=== PATIENT | male | born 1950 | race Caucasian/White ===

== ENCOUNTER 2016-12-09 13:21 | Inpatient (IN) | payer MEDICARE ==
[2016-12-09] MEDS ORDERED: Morphine 2 MG/ML SYRINGE ONE ×2 (14:10→17:24)
[2016-12-09] MEDS ORDERED: Ondansetron HCl/PF 4 MG/2 ML Vial ONE ×2 (14:10→17:24)
[2016-12-09 14:36] LABS: #Lymphocytes 0.2 thou/uL (1.20-3.40); #Monocytes 0.2 thou/uL (0.11-0.59); #Neutrophils 4.7 thou/uL (1.40-6.50); %Basophils 0.2 % (0.0-1.0); %Eosinophils 0.2 % (0.0-10.0); Hematocrit 27.1 % (42.0-52.0); Mean Platelet Volume 6.1 fL (7.4-10.4); Red Blood Cell (RBC) Count 3.38 mill/uL (4.70-6.10); White Blood Cell (WBC) Count 5.1 thou/uL (4.8-10.8)
[2016-12-09 14:50] LABS: Anisocytosis SLIGHT = 6-15 cells (100X) (0-5/hpf); Hypochromia SLIGHT = 6-15 cells (100X) (0-5/hpf); Ovalocytes SLIGHT = 2-5 cells (100X) (0-1/hpf); Polychromasia SLIGHT = 2-3 cells (100X) (0-2/hpf); Schistocytes SLIGHT = 2-5 cells (100X) (0-1/hpf); Target Cells SLIGHT = 2-5 cells (100X) (0-1/hpf); Tear Drops SLIGHT = 2-5 cells (100X) (0-1/hpf)
[2016-12-09 14:55] LABS: ALT (SGPT) 14 U/L (8-55); AST (SGOT) 19 U/L (5-34); Alkaline Phosphatase 120 U/L (40-150); Anion Gap 13 mmol/L (10-20); BUN (Urea Nitrogen) 13 mg/dL (8.4-25.7); Bilirubin, Total 0.9 mg/dL (0.2-1.2); Calc. Creatinine Clearance 0 mL/min (70-130); Calcium 9.6 mg/dL (7.8-10.44); Carbon Dioxide 24 mmol/L (23-31); Chloride 102 mmol/L (98-107); Estimated GFR-MDRD Greater than 90; Lipase 6 U/L (8-78); Protein, Total 6.9 g/dL (5.8-8.1)
[2016-12-09] MEDS ORDERED: Iopamidol 370 76% 100 ML VIAL ONE (14:55)
[2016-12-09 14:59] LABS: Troponin I Less than 0.010 ng/mL (< 0.028)
--- NOTE | 2016-12-09 15:42 | CT ---
CT ABDOMEN AND PELVIS WITH CONTRAST: HISTORY: Small bowel obstruction. Abdominal pain. Nausea and vomiting. COMPARISON: CT abdomen and pelvis 10/03/15. FINDINGS: Lung bases are clear. No pericardial effusion. There is small bowel obstruction to the level of the distal ileum within the right lower quadrant wh ich appears to be a stricture. This is seen on series 601 image 70. There is moderate proximal sma ll bowel dilatation. The small bowel measures up to 4 cm. The large bowel is collapsed. There is new free fluid within the abdomen and pelvis, especially along the perihepatic space. Prio r cholecystectomy. The spleen is mildly enlarged. Pancreas is unremarkable. The kidneys are normal. Aortoiliac contour is normal. Posterior spinal fusion is present at L3-L5. IMPRESSION: 1. Small bowel obstruction to the level of the right lower quadrant of the abdomen and distal ileum best seen on series 601 image 67-70. This appears to be due to a stricture. Fairly extensive subm ucosal edema throughout the remaining collapsed ileum. Transudation of fluid across the bowel wall is suspected with possible breakdown of integrity due to the moderate inflammatory edema as well as perihepatic ascites. Surgical consultation is advised. 2. Small volume gastric varices and esophageal varices. 3. Mild splenomegaly. 4. Extensive submucosal edema and fat of the distal ileum to suggest chronic inflammatory bowel dis ease such as Crohn's. 5. Atrophy of the quadriceps musculature of the right side. POS: [facility]
[2016-12-09 17:26] LABS: Bilirubin Negative (Negative); Blood, Urine Negative (Negative); Glucose, Urine (Dipstick) Negative (Negative); Ketone, Urine 40 mg/dL (Negative); Nitrite Negative (Negative); Protein, Urine (Dipstick) Negative (Neg-Trace)
[2016-12-09] MEDS ORDERED: Ondansetron ODT 4 MG TAB SL PRN (18:00)
[2016-12-09] MEDS ORDERED: Ondansetron HCl/PF 4 MG/2 ML Vial IVP PRN ×2 (18:00→18:12)
[2016-12-09] MEDS ORDERED: Sodium Chloride 0.9% 1,000 ML IV SCH (18:00)
[2016-12-09] MEDS ORDERED: Morphine 2 MG/ML SYRINGE SLOW IVP PRN (18:12)
[2016-12-09] MEDS ORDERED: Dextrose 5% in Water 1,000 ML IV PRN (18:12)
[2016-12-09] MEDS ORDERED: HumaLOG 300 UNITS/3 ML VIAL SC PRN (18:12)
[2016-12-09] MEDS ORDERED: Dextrose 50% Abboject 50 ML SYRINGE SLOW IVP PRN (18:12)
[2016-12-09] MEDS ORDERED: Insulin Regular 300 UNITS/3 ML VIAL SC PRN ×2 (18:12)
[2016-12-09 18:30] LABS: #Lymphocytes 0.4 thou/uL (1.20-3.40); #Monocytes 0.2 thou/uL (0.11-0.59); #Neutrophils 4.5 thou/uL (1.40-6.50); %Eosinophils 0.1 % (0.0-10.0); %Lymphocytes 7.4 % (21.0-51.0); %Monocytes 3.7 % (0.0-10.0); Hematocrit 26.8 % (42.0-52.0); Mean Platelet Volume 7.5 fL (7.4-10.4); Red Blood Cell (RBC) Count 3.34 mill/uL (4.70-6.10); White Blood Cell (WBC) Count 5.1 thou/uL (4.8-10.8)
[2016-12-09 18:42] LABS: Anisocytosis SLIGHT = 6-15 cells (100X) (0-5/hpf); Hypochromia SLIGHT = 6-15 cells (100X) (0-5/hpf); Ovalocytes SLIGHT = 2-5 cells (100X) (0-1/hpf); Polychromasia SLIGHT = 2-3 cells (100X) (0-2/hpf)
[2016-12-09 18:43] LABS: Schistocytes SLIGHT = 2-5 cells (100X) (0-1/hpf); Target Cells SLIGHT = 2-5 cells (100X) (0-1/hpf)
[2016-12-09] MEDS: Sodium Chloride 0.9% 1,000 ML IV SCH (19:21)
[2016-12-09] MEDS ORDERED: Labetalol HCl 100 MG/20 ML VIAL SLOW IVP PRN (19:41)
--- NOTE | 2016-12-09 19:44 | HP ---
HISTORY OF PRESENT ILLNESS: Mr. Swan is a 66-year-old old man for the last 3 days he has been experimenting from increasing abdominal pain and vomiting. He came into the ER, he was daniela javed, he was found to have small-bowel obstruction. General Surgery was consulted and he suggested t hat GI will be on board and the patient be admitted to Medicine. He denies any diarrhea. Actually, his last bowel movement was about 2 days ago. He denies any fever. PAST MEDICAL HISTORY: Remarkable for coronary artery disease. He is also known to have history of diabetes. He denies hypertension, heart disease, lung disease, liver disease. He does also have a history of polio as a toddler. PAST SURGICAL HISTORY: Remarkable for cholecystectomy, right ankle surgery, C-spine surgery and low er back laminectomy. ALLERGIES: He does not have any known allergies. SOCIAL HISTORY: He quit smoking many years ago. He denies ETOH abuse. He denies drug abuse. FAMILY HISTORY: Reviewed and is not contributory. HOME MEDICATIONS: To be identified. He claims that he was on Humira. REVIEW OF SYSTEMS: Constitutional: He admits to generalized weakness. Denies fever. HEENT: No h eadache, no ocular pain, no sore throat, no rhinorrhea, no earache, no epistaxis. Neck: No neck pa in, no neck stiffness. Respiratory: No shortness of breath. Cardiovascular: No chest pain. Pulm onary: No coughing. Gastrointestinal: Admit to vomiting, abdominal pain, constipation. Genitouri nary: No dysuria, no hematuria. Endocrinology: No heat or cold intolerance. No polyuria, polydip tano or polyphagia. Musculoskeletal: No arthralgia, no myalgia. Skin: No rash, no itching. Lymph atic: No palpable lymphadenopathy, no painful lymphadenopathy. Hematology: No abnormal bleeding, no ecchymosis. Allergies: No hayfever. Neurologic: No seizure. Psychiatric: No anxiety, no dep ression. PHYSICAL EXAMINATION: GENERAL: At the current time, he is alert, oriented, in no acute distress. VITAL SIGNS: His latest vital signs show temperature of 97.8, pulse rate 105, respiratory rate of 1 6, blood pressure 158/78. HEENT: His head is normocephalic and atraumatic. Both of his pupils are equal, reacting. Ears and nose are normal. Oral mucosa is moist. Pharyngeal area is clear. NECK: Supple. There is no distention of the jugular vein. No lymphadenopathy felt. Thyroid gland not palpable and there is no carotid bruit. CHEST: Symmetrical with regular S1, S2. LUNGS: Clear. ABDOMEN: Soft. Bowel sounds are decreased. We could not appreciate any organomegaly. EXTREMITIES : Limbs show no edema. NEUROLOGIC: He moves all extremities. LABORATORY DATA AND IMAGING: His CBC showed WBC of 5.1, hemoglobin of 8.2, hematocrit of 27.1, MCV of 80.1, platelet of 45. Chemistry and electrolytes show sodium of 135, potassium of 4, chloride 10 2, CO2 24, BUN 13, creatinine 0.64, glucose 157, calcium 9.6, total bilirubin 0.9, AST 9, ALT 14, al kaline phosphatase 120. Troponin negative. Albumin 3.9, globulin 3.0. Lipase 6. Abdomen and pelv is CT was reported to show small-bowel obstruction. ASSESSMENT AND PLAN: This is a 66-year-old old man with a history of diabetes mellitus an d coronary artery disease, who is being admitted with small-bowel obstruction. General Surgery and gastroenterology are consulted. The patient was noticed to have a low platelet count and also with anemia. We will consult hematology. The patient may need platelet transfusion prior to surgery. B y the meantime, he will be hydrated with normal saline. His home medications are yet to be identifi ed. Please see orders.
--- NOTE | 2016-12-09 23:13 | CON ---
DATE OF CONSULTATION: 12/09/2016 CHIEF COMPLAINT: Abdominal pain. HISTORY: Mr. Swan is a 66-year-old man with a 10-15 years history of Crohn disease. He has been admitted multiple times in the past for abdominal pain, nausea and vomiting related to a Crohn stricture in the terminal ileum. He has a 3-4 day history of increasing right lower quadrant pain, which he thought was just a Crohn's flare, but then the pain got much worse and he started to throw up, so he came into the emergency room. He was found to have findings consistent with small-bowel obstruction likely related to a stricture in the terminal ileum with decompressed terminal ileum and colon and a small amount of free fluid in the abdomen. An NG tube was placed and the patient was admitted to the medicine service with GI consultation. The patient states that he has been getting Humira as prescribed and had been doing well until just recently. PAST MEDICAL HISTORY: Includes Crohn disease, coronary artery disease, diabetes , hypertension and myelodysplasia. PAST SURGICAL HISTORY: Cholecystectomy, right ankle surgery and back surgeries , but no bowel surgery for his Crohn's. SOCIAL HISTORY: Quit smoking many years ago and does not use drugs or alcohol. FAMILY HISTORY: Negative for inflammatory bowel disease or GI malignancy. ALLERGIES: He has no known drug allergies. OUTPATIENT MEDICATIONS: Include Humira, Xanax, glimepiride, [place], nortriptyline, amlodipine, azathioprine and prednisone. REVIEW OF SYSTEMS: Ten-system review of systems is negative except per HPI. He specifically denies nausea or vomiting. His last bowel movement was 2 days ago, but he passed a little gas just earlier today in the hospital. He states that his abdominal pain is colicky in nature, but does not go completely away. PHYSICAL EXAMINATION: VITAL SIGNS: Unremarkable. He is afebrile, heart rate 96, respirations 16, blood pressure 164/74 and 100% saturated on room air. GENERAL: Reveals a pleasant gentleman in no acute distress, with colicky episodes of abdominal pain occurring intermittently during the interview and during which he is in moderate distress. He is not flushed or toxic, jaundiced or icteric. HEENT: Unremarkable. NG tube is in place. There has been about 200 mL of bilious drainage. The nurse states that when he first came up to the armando there was nothing coming out of the NG tube, but he had an episode of nausea and vomiting and the NG tube drained about 200 mL at that time and then stopped draining again. HEART: Regular in its rate and rhythm without murmurs, rubs or gallops. LUNGS: Clear to auscultation bilaterally. ABDOMEN: Soft and mildly distended with hyperactive bowel sounds and diffuse mild tenderness to palpation without rigidity, rebound, guarding or focal findings. He has no palpable masses or hernias. EXTREMITIES: Warm and well perfused without edema. NEUROLOGIC: No focal deficits. PSYCHIATRIC: Alert, oriented and appropriate. LABORATORY AND X-RAY FINDINGS: White count is normal at 5.1, hematocrit 26.8 and platelet count 38. Electrolytes and LFTs are unremarkable. UA showed some ketones and a higher than normal specific gravity, but otherwise clear. CT images are reviewed and I agree with the written report. ASSESSMENT AND PLAN: Recurrent small bowel obstruction due to Crohn stricture. This episode appears to be symptomatically and radiographically worse than previous episodes and he is still quite uncomfortable even after placement of the NG tube and administration of pain medication. If he does not improve rapidly then surgery may be necessary. Hopefully, he will improve with bowel rest and medical management of his Crohn's; however, given the more severe nature of this obstruction, surgery may be necessary during this admission. PENELOPE
--- NOTE | 2016-12-09 23:17 | RAD ---
KUB: History: Abdominal pain. Comparison: CT, earlier today. FINDINGS: There is air within both small and large bowel with dilated small bowel loops. NG tube is present wi thin the stomach. Post op changes of the lumbar spine and gallbladder region are noted. IMPRESSION: Findings consistent with small bowel obstruction. POS: [facility]
[2016-12-09] MEDS: Morphine 2 MG/ML SYRINGE SLOW IVP PRN (23:36)
[2016-12-10] MEDS: Morphine 2 MG/ML SYRINGE SLOW IVP PRN (01:43)
[2016-12-10 05:58] LABS: #Lymphocytes 0.3 thou/uL (1.20-3.40); #Monocytes 0.2 thou/uL (0.11-0.59); #Neutrophils 4.7 thou/uL (1.40-6.50); %Basophils 0.1 % (0.0-1.0); %Eosinophils 0.2 % (0.0-10.0); %Lymphocytes 5.2 % (21.0-51.0); %Monocytes 4.4 % (0.0-10.0); Hematocrit 26.2 % (42.0-52.0); Mean Platelet Volume 7.2 fL (7.4-10.4); Red Blood Cell (RBC) Count 3.26 mill/uL (4.70-6.10); White Blood Cell (WBC) Count 5.2 thou/uL (4.8-10.8)
[2016-12-10 06:22] LABS: Anion Gap 12 mmol/L (10-20); BUN (Urea Nitrogen) 16 mg/dL (8.4-25.7); Calc. Creatinine Clearance 0 mL/min (70-130); Calcium 8.6 mg/dL (7.8-10.44); Carbon Dioxide 24 mmol/L (23-31); Chloride 107 mmol/L (98-107); Estimated GFR-MDRD Greater than 90
[2016-12-10] MEDS ORDERED: FLU VACC TS2017-18 (>65YR) 0.5 ML SYRINGE IM ONE (09:00)
[2016-12-10] MEDS ORDERED: methylPREDNISolone Sod Succ/PF 125 MG/2 ML VIAL IVP SCH (09:00)
--- NOTE | 2016-12-10 11:47 | RAD ---
RADIOGRAPH ABDOMEN ONE VIEW: 12/10/2016 9:14 a.m. HISTORY: A 66-year-old male with small bowel obstruction. Followup. COMPARISON: 12/09/2016 11:03 p.m. FINDINGS: NG tube remains in the left upper quadrant, within the fundus of a decompressed stomach. The previo usly seen dilated air-filled small bowel loops in the left upper quadrant have resolved. There is m ural and fold thickening of a decompressed bowel loop in the left lower quadrant, perhaps representi ng sigmoid colon. Again noted are pedicle screws bilaterally, at L3, L4, and L5. IV contrast mater ial is present in the urinary bladder. IMPRESSION: Interval improvement in the abnormal bowel gas pattern. POS: [facility]
[2016-12-10 14:17] VITALS: BMI 26.3
[2016-12-10] MEDS ORDERED: Labetalol HCl 100 MG/20 ML VIAL SLOW IVP PRN (14:58)
[2016-12-10] MEDS ORDERED: Famotidine/PF 20 mg/2ml Vial SLOW IVP SCH (15:00)
--- NOTE | 2016-12-10 15:09 | PDOC.PN ---
- Subjective Encounter Start Date: 12/10/16 Encounter Start Time: 15:07 Patient seen and examined. No new complaints. No overnight events. Had 2 BM - first mushy, second - watery. No fever/abd pain - Objective MAR Reviewed: Yes Vital Signs & Weight: Vital Signs (12 hours) Temp Pulse Resp BP Pulse Ox 12/10/16 11:40 98 F 104 H 16 143/75 H 98 12/10/16 08:41 98.8 F 89 16 99 12/10/16 07:35 98.8 F 89 16 151/66 H 99 12/10/16 04:00 98.4 F 88 16 158/76 H 99 Weight Weight 173 lb I&O: 12/09/16 12/10/16 12/11/16 06:59 06:59 06:59 Output Total 150 Balance -150 Result Diagrams: 12/11/16 05:06 12/11/16 05:06 Radiology Reviewed by me: Yes (KUB - improving SBO) Phys Exam - Physical Examination Constitutional: NAD Respiratory: no wheezing, no rhonchi Cardiovascular: RRR, no rub Gastrointestinal: soft, non-tender, no distention, positive bowel sounds Musculoskeletal: no edema, edema present Neurological: non-focal, moves all 4 limbs Psychiatric: A&O x 3 Dx/Plan (1) SBO (small bowel obstruction) Code(s): K56.609 - UNSP INTESTNL OBST, UNSP TO PARTIAL VERSUS COMPLETE OBST Status: Acute Comment: due to Crohn's disease (2) Anxiety disorder Code(s): F41.9 - ANXIETY DISORDER, UNSPECIFIED Status: Chronic (3) Pancytopenia Code(s): D61.818 - OTHER PANCYTOPENIA Status: Chronic Comment: Oncology following (4) Dehydration Code(s): E86.0 - DEHYDRATION Status: Acute - Plan cont current plan of care, DVT proph w/SCDs * DC IV steroids - Patient does not take Prednisone 40 mg daily (I removed from the home med list) * Cont supportive care * Gen surg following * Await GI input * Add ice chips per patient request Review of Systems - Review of Systems Respiratory: negative: Cough, Dry, Shortness of Breath, Hemoptysis, SOB with Excertion, Pleuritic Pain, Sputum, Wheezing Cardiovascular: negative: Chest Pain, Palpitations, Orthopnea, Paroxysmal Noc. Dyspnea, Edema, Light Headedness, Other - Medications/Allergies Allergies/Adverse Reactions: Allergies Allergy/AdvReac Type Severity Reaction Status Date / Time No Known Drug Allergies Allergy Verified 03/22/15 02:02 Medications: Current Medications Alprazolam (Xanax) 0.75 mg PO Q8H PRN PRN Reason: Anxiety Dextrose/Water (Dextrose 50%) 25 gm SLOW IVP PRN PRN PRN Reason: Hypoglycemia Famotidine (Pepcid) 20 mg SLOW IVP BID [place] Famotidine (Pepcid) 20 mg SLOW IVP ONE [place] Glucagon (Glucagon) 1 mg IM PRN PRN PRN Reason: Hypoglycemia Dextrose/Water (D5w) 1,000 mls @ 0 mls/hr IV .Q0M PRN; As Directed PRN Reason: Hypoglycemia Sodium Chloride (Normal Saline 0.9%) 1,000 mls @ 75 mls/hr IV .[id number] [facility] Last Admin: 12/09/16 19:21 Dose: 1,000 mls Insulin Human Lispro (Humalog) 0 units SC .BEDTIME SLIDING SC PRN PRN Reason: Bedtime Correctional Scale Insulin Human Regular (Humulin R) 0 units SC .MILD SLIDING SCALE PRN PRN Reason: Mild Correctional Scale Labetalol HCl (Normodyne) 10 mg SLOW IVP Q4H PRN PRN Reason: Systolic BP > 180 Morphine Sulfate (Morphine Sulfate) 4 mg SLOW IVP Q2H PRN PRN Reason: Pain Last Admin: 12/10/16 01:43 Dose: 4 mg Nortriptyline HCl (Pamelor) 25 mg PO HS [facility] Ondansetron HCl (Zofran) 4 mg IVP Q6H PRN PRN Reason: Nausea/Vomiting Last Admin: 12/09/16 19:48 Dose: 4 mg Sodium Chloride (Flush - Normal Saline) 10 ml IVF PRN PRN PRN Reason: Saline Flush
[2016-12-10] MEDS: Sodium Chloride 0.9% 1,000 ML IV SCH ×2 (16:11→23:18)
[2016-12-10] MEDS ORDERED: Cepastat Lozenges 1 LOZ PO PRN ×2 (16:19→16:21)
[2016-12-10] MEDS ORDERED: Chloraseptic Spray 180 ml Bottle PO PRN ×2 (16:19→16:21)
[2016-12-10 17:06] LABS: Iron 21 ug/dL (65-175)
--- NOTE | 2016-12-10 19:40 | CON ---
DATE OF CONSULTATION: 12/10/2016 REASON FOR CONSULTATION: Thrombocytopenia and anemia. HISTORY OF PRESENT ILLNESS: Mr. Swan is a 66-year-old gentleman with a history of Crohn's disease who presented to the emergency room with abdominal pain. He was noted to have a small-bowel obstruction. An NG tube was placed and he has improved over the last 24 hours. Routine labs showed a white count of 5.2, hemoglobin of 8.2 and a platelet count of 45,000. The patient has been on Imuran 200 mg daily with Humira twice monthly for Crohn's disease. He started the Imuran in early 2015. He has been evaluated in the past by Dr. Wyatt and has chronic iron deficiency secondary to Crohn's disease and malabsorption. He has received IV iron. His last dose was in April 2016. He had a bone marrow biopsy in 2010 and 2011, both of which showed nonspecific morphological findings and normal cytogenics. Unfortunately, he has carried a diagnosis of myelodysplastic syndrome since that time. He denies any recent episodes of bleeding and has been in his usual state of health until this visitation. PAST MEDICAL HISTORY: 1. Crohn's disease 2. Chronic iron deficient anemia. 3. Coronary artery disease. 4. Diabetes. 5. Hypertension. 6. Multiple small bowel obstructions. PAST SURGICAL HISTORY: 1. Cholecystectomy. 2. Ankle surgery. 3. Back surgery. ALLERGIES: No known drug allergies. HOME MEDICATIONS: 1. Alprazolam 0.75 mg t.i.d. p.r.n. 2. Glimepiride 1 mg daily. 3. Nortriptyline 25 mg daily. 4. Imuran 200 mg daily. 5. Humira subcu b.i.d. 6. Bentyl daily. FAMILY HISTORY: A sister with lung cancer. SOCIAL HISTORY: , lives with his spouse. Former smoker, discontinued in 1987. No alcohol or illicit drug use. REVIEW OF SYSTEMS: Constitutional: No fever, chills, or night sweats. Eyes: No blurred or double vision. ENT: No pain, hoarseness, sore throat, or dysphagia. Cardiovascular: No chest pain, palpitations or syncope. Respiratory: No shortness breath, dyspnea on exertion or orthopnea. Gastrointestinal: No nausea, vomiting, diarrhea, or constipation. Positive for abdominal pain. Genitourinary: No dysuria or hematuria. Musculoskeletal: No joint or back pain. Skin: No rash or pruritus. Hematologic: No bleeding , bruising or clotting. Neurologic: Denies weakness, headache, numbness, tingling or seizure activity. Psychiatric: No anxiety or depression. PHYSICAL EXAMINATION: VITAL SIGNS: Temperature is 98.0, pulse is 104, respiratory rate 16, BP is 143/ 75. He is 98% on room air. GENERAL: Well-developed, well-nourished male, in no acute distress. HEENT: Normocephalic, atraumatic. Pupils equal and reactive to light. NECK: Supple. CARDIOVASCULAR: Regular rate and rhythm. LUNGS: Clear to auscultation. ABDOMEN: Soft, nontender, bowel sounds are positive. He has an NG tube in place. EXTREMITIES: No clubbing, cyanosis or edema. SKIN: No rash. HEMATOLOGIC: No petechia or purpura. NEUROLOGICAL: Nonfocal. PSYCHIATRIC: The patient is alert and oriented and appropriate. PERTINENT LABORATORY AND X-RAYS: Current WBCs are 5.2, hemoglobin 8.2, hematocrit 26.2, platelet count is 42,000, 90% neutrophils, 6% lymphocytes. Sodium 139, potassium 3.9, chloride 107, CO2 is 24, BUN is 16, creatinine 0.6, calcium 8.6, total bilirubin is 0.9, AST is 19, ALT 14, alkaline phosphatase is 120, CK-MB is 1.7. Serum total protein 6.9, albumin 3.9, globulin 3.0. Urine is negative for bacteria. ASSESSMENT: 1. Crohn's disease with a small-bowel obstruction. 2. Chronic anemia. 3. Thrombocytopenia on immunosuppressive medication. DISCUSSION: We will check iron studies and give IV iron p.r.n. as he is not able to tolerate oral iron. He has had negative bone marrow biopsy in the past and does not have myelodysplastic syndrome. His thrombocytopenia is likely associated with his Imuran. He is not at any risk for bleeding with surgery. If there is some concern we can type and cross him and have platelets available. I will monitor his CBC and he can follow up in the outpatient setting. Thank you for the consult. PENELOPE
[2016-12-10] MEDS: Famotidine/PF 20 mg/2ml Vial SLOW IVP SCH (20:15)
[2016-12-10] MEDS: Nortriptyline HCl 25 MG CAP PO SCH (20:21)
--- NOTE | 2016-12-10 21:15 | PRG ---
DATE OF SERVICE: 12/10/2016 SUBJECTIVE: Mr. Swan is feeling much better today. He has passed gas multiple times and had two bowel movements and his abdominal pain has basically resolved. His NG tube initially put out a few 100 mL, but has not put out much of anything today. OBJECTIVE: VITAL SIGNS: Stable. Heart rate 80s to 100, blood pressure is a little bit elevated. O2 sats are good. NG output yesterday was 150 and there is about 400 in the canister now. White count is normal. H and H are stable. Electrolytes are unremarkable. An abdominal film done this morning showed improvement in the dilation of his small bowel loops with more gas in the colon. ASSESSMENT: Small-bowel obstruction felt to be due to Crohn's stricture, but with rapid improvement with bowel rest and NG decompression. This may be due to other reasons as I doubt that his Crohn's would have improved with such rapidity. Patient is feeling much better, but he had not been seen by Gastroenterology at the time that I saw him, so I elected not to remove his NG tube yet. I did order a small bowel follow through for the morning to see if there is any residual restriction in his bowel, but hopefully we can avoid surgery during this admission. PENELOPE
--- NOTE | 2016-12-11 04:47 | CON ---
DATE OF CONSULTATION: 12/10/2016 CHIEF COMPLAINT: Abdominal pain with nausea and vomiting. HISTORY OF PRESENT ILLNESS: Mr. Swan is a 66-year-old man with a history of small bowel Crohn's [facility] who presented to the emergency room yesterday with nausea, vomiting and abdominal pain. He dubon d a CT scan performed that showed evidence of a small bowel obstruction in the right lower quadrant. He has had pain starting about a week ago with sharp pain in the right lower side with palpable ma ss and cramping when that occurs. He started having episodes of nausea and vomiting as well to the point that he came to the emergency room yesterday. He has had no blood in the stool. He went a co uple of days without a bowel movement, but today he passed a couple of mushy stools. His weight has been stable. He has had no fever. PAST MEDICAL HISTORY: Crohn's disease diagnosed around 2007 by capsule endoscopy. He has had upper and lower endoscopy as well. He has had Crohn's confined to the small intestine. Coronary artery disease, diabetes mellitus, history of polio as a toddler. PAST SURGICAL HISTORY: Cholecystectomy, ankle surgery, cervical spine surgery, back surgery, endosc opies. FAMILY HISTORY: Negative for GI malignancies. SOCIAL HISTORY: Quit smoking years ago. No alcohol or drugs. ALLERGIES: No known drug allergies. MEDICATIONS: Prior to admission, Humira 80 mg every 2 weeks and azathioprine 200 mg daily. He also takes alprazolam, metformin, glimepiride, nortriptyline. REVIEW OF SYSTEMS: Negative x10 systems reviewed except as stated in the history of present illness . PHYSICAL EXAMINATION: VITAL SIGNS: Temperature 98.9, pulse 92, blood pressure 179/69. GENERAL: He is in no acute distress. He is awake and alert, oriented x3. HEENT: Eyes have no scleral icterus. Oropharynx is clear, without lesions. NECK: No cervical or supraclavicular lymphadenopathy. LUNGS: Clear to auscultation bilaterally. HEART: Regular rate and rhythm. ABDOMEN: Soft, nontender, nondistended. Bowel sounds are present. EXTREMITIES: No lower extremity edema. NEUROLOGIC: Cranial nerves are grossly intact. LABORATORY: White blood cell count 5.2, hemoglobin 8.2, platelets 42,000, creatinine 0.6, iron 21, TIBC 391, % saturation 5. LFTs were normal. Albumin 3.9, lipase 6. IMPRESSION: 1. Small bowel Crohn's disease presenting with small-bowel obstruction. The obstruction seems to b e improving as he started passing bowel movements today and has bowel sounds today. His pain is imp roved and his NG output has decreased. He only had the 150 mL out of the last 12 hours. 2. Anemia. His iron level is low. We will check a ferritin for better assessment of iron stores. He might require IV iron per Hematology. 3. Small-bowel obstruction is clinically improved. He was placed on steroids on admission. I will restart the IV steroids and transitioned to prednisone with a 35 day taper after he is able tolerat e oral medications. RECOMMENDATIONS: 1. Small bowel follow through tomorrow as scheduled. 2. If the contrast passes through adequately then his NG tube can be discontinued and his diet can be advanced. 3. Restart steroids. We will give methylprednisolone 20 mg q.8h. If he is able to tolerate a diet tomorrow then switch him over to prednisone 40 mg daily, and this can be tapered over the next staci h or so. 4. He is unable to recall for sure if he is due for his Humira dose tomorrow or the next Saturday. He will have his check his calendar. If he is due for the Humira tomorrow, then a trough Humir a level and antibody level can be checked. He will need to restart his Humira at that point as well .
[2016-12-11 05:41] LABS: #Lymphocytes 0.2 thou/uL (1.20-3.40); #Monocytes 0.2 thou/uL (0.11-0.59); #Neutrophils 2.9 thou/uL (1.40-6.50); %Basophils 0.3 % (0.0-1.0); %Eosinophils 0.6 % (0.0-10.0); %Lymphocytes 7.3 % (21.0-51.0); %Monocytes 4.9 % (0.0-10.0); Mean Platelet Volume 10.6 fL (7.4-10.4); Red Blood Cell (RBC) Count 3.02 mill/uL (4.70-6.10); White Blood Cell (WBC) Count 3.3 thou/uL (4.8-10.8)
[2016-12-11 05:55] LABS: ALT (SGPT) 13 U/L (8-55); AST (SGOT) 14 U/L (5-34); Alkaline Phosphatase 94 U/L (40-150); Anion Gap 12 mmol/L (10-20); BUN (Urea Nitrogen) 20 mg/dL (8.4-25.7); Bilirubin, Total 0.5 mg/dL (0.2-1.2); Calc. Creatinine Clearance 133 mL/min (70-130); Calcium 8.6 mg/dL (7.8-10.44); Carbon Dioxide 22 mmol/L (23-31); Chloride 107 mmol/L (98-107); Estimated GFR-MDRD Greater than 90; Globulin 2.6 g/dL (2.4-3.5); Magnesium 1.9 mg/dL (1.6-2.6); Phosphorus 2.1 mg/dL (2.3-4.7)
[2016-12-11] MEDS: Famotidine/PF 20 mg/2ml Vial SLOW IVP SCH ×2 (08:02→20:43)
[2016-12-11] MEDS: Sodium Chloride 0.9% 1,000 ML IV SCH (08:02)
[2016-12-11] MEDS ORDERED: ADMIXTURE FEE IVPB SCH (08:15)
[2016-12-11] MEDS ORDERED: IRON DEXTRAN IVPB SCH (08:15)
[2016-12-11] MEDS ORDERED: SODIUM CHLORIDE IVPB SCH (08:15)
[2016-12-11] MEDS ORDERED: Potassium Phosphate 15 MMOL in Sodium Chloride 0.9% 250 ML 250 ML IVPB SCH (09:45)
--- NOTE | 2016-12-11 10:31 | RAD ---
GASTROGRAFIN SMALL BOWEL FOLLOW THROUGH: Date: 12/11/16 INDICATION: Concern for partial small obstruction. History of Crohn's disease. COMPARISON: CT of the abdomen dated 12/09/16 and abdominal radiograph dated 12/10/16. FINDINGS: Bowel gas pattern is unobstructed. Cholecystectomy clips are seen within the right upper quadrant. T here are numerous phleboliths with the lower pelvis. There are pedicle screws seen at L3 through L5 with radiolucent cables. Gastric catheter is seen within the region of the gastric cardia. No free air is demonstrated. Subse quent images after administration of Gastrografin demonstrates contrast opacification through loops of small bowel transversing to the level of the colon by 1 hour. Contrast is present within the rect um by 1 hour. There is some mild bowel wall thickening involving the loops of the distal ileum, as w ell as portions of the duodenum suspected. IMPRESSION: 1. No evidence of small bowel obstruction. 2. Mild suggested wall thickening involving loops of distal ileum as well as the duodenum which can be related to patient's underlying Crohn's disease. 3. Cholecystectomy. 4. Gastric catheter. POS: [facility]
[2016-12-11] MEDS ORDERED: Adalimumab 40 MG/0.8 ML SYRINGE SC SCH (12:45)
[2016-12-11] MEDS ORDERED: predniSONE 20 MG TAB PO SCH (12:45)
--- NOTE | 2016-12-11 13:01 | PRG ---
DATE OF SERVICE: 12/11/2016 SUBJECTIVE: He feels much better today. He has the NG tube out and is tolerating clear liquids wel l. He had small bowel follow through today and contrast passed rapidly through the small bowel. He has had no further nausea, vomiting or abdominal pain. PHYSICAL EXAMINATION: VITAL SIGNS: Temperature 97.7, pulse 85, blood pressure 151/70. GENERAL: He is in no acute distress, alert and oriented x3. LUNGS: Clear to auscultation bilaterally. HEART: Regular rate and rhythm. ABDOMEN: Soft, nontender, and nondistended. Bowel sounds are present. EXTREMITIES: No lower extremity edema. LABORATORY DATA: Creatinine 0.6, bilirubin 0.5, AST 14, ALT 13, alkaline phosphatase 94, and albumi n 3.4. IMPRESSION: 1. Exacerbation of small bowel Crohn's disease presenting with small-bowel obstruction, now resolve d. 2. Anemia with iron deficiency. PLAN: 1. He is receiving IV iron today. 2. We will stop the methylprednisolone and change to prednisone 40 mg daily. 3. Start a fiber restricted diet. 4. He could likely discharge home tomorrow if he is tolerating his diet well on oral prednisone. 5. Check Humira trough level and antibody. He believes his Humira dose is due today. He should re ceive Humira 80 mg subcu today. He will bring this from home to be administered. 6. Follow up in the office with Dr. Flores in 3-4 weeks. We might ultimately have to consider altern ative to Humira.
[2016-12-11] MEDS ORDERED: MD-Gastroview 120 ML BOT ONE (13:04)
--- NOTE | 2016-12-11 17:06 | PRG ---
DATE OF SERVICE: 12/11/2016 SUBJECTIVE: Mr. Swan is feeling well today. OBJECTIVE: His small bowel follow through showed no evidence of obstruction. Contrast was in the right colon by 45 minutes after administration and he has had multiple bowel movements. His vitals have been normal except for mild elevation in his blood pressure. His abdomen is completely soft, nontender, nondistended. ASSESSMENT: Small-bowel obstruction, clinically resolved. He does have Crohn' s disease and there was some evidence of thickening in the distal ileum by small bowel follow through, but this is being managed medically. He is on IV steroids and the plan is to transition him to oral steroids and advance his diet and if he tolerates this to let him go home. PENELOPE
[2016-12-11] MEDS: Nortriptyline HCl 25 MG CAP PO SCH (20:43)
[2016-12-11] MEDS: ALPRAZolam 0.25 MG TAB PO PRN (20:48)
--- NOTE | 2016-12-11 20:52 | PDOC.PN ---
- Subjective Encounter Start Date: 12/11/16 Encounter Start Time: 15:00 Patient seen and examined. No new complaints. No overnight events - Objective MAR Reviewed: Yes Vital Signs & Weight: Vital Signs (12 hours) Temp Pulse Resp BP Pulse Ox 12/11/16 19:30 98.8 F 92 16 161/67 H 98 12/11/16 16:00 98.8 F 87 14 178/77 H 100 12/11/16 12:00 97.7 F 85 12 151/70 H 100 Weight Weight 173 lb I&O: 12/10/16 12/11/16 12/12/16 06:59 06:59 06:59 Intake Total 1650 3925 Output Total 150 875 Balance -902 852 1584 Result Diagrams: 12/13/16 06:11 12/13/16 06:11 Phys Exam - Physical Examination Constitutional: NAD Respiratory: no wheezing, no rales, no rhonchi Cardiovascular: RRR, no rub Gastrointestinal: soft, positive bowel sounds Musculoskeletal: no edema Neurological: moves all 4 limbs Dx/Plan (1) SBO (small bowel obstruction) Code(s): K56.609 - UNSP INTESTNL OBST, UNSP TO PARTIAL VERSUS COMPLETE OBST Status: Acute Comment: due to Crohn's disease (2) Anxiety disorder Code(s): F41.9 - ANXIETY DISORDER, UNSPECIFIED Status: Chronic (3) Pancytopenia Code(s): D61.818 - OTHER PANCYTOPENIA Status: Chronic Comment: Oncology following (4) Dehydration Code(s): E86.0 - DEHYDRATION Status: Acute - Plan cont current plan of care, DVT proph w/SCDs * Cont current meds as below * AM labs Review of Systems - Review of Systems Respiratory: negative: Cough, Dry, Shortness of Breath, Hemoptysis, SOB with Excertion, Pleuritic Pain, Sputum, Wheezing Cardiovascular: negative: Chest Pain, Palpitations, Orthopnea, Paroxysmal Noc. Dyspnea, Edema, Light Headedness, Other - Medications/Allergies Allergies/Adverse Reactions: Allergies Allergy/AdvReac Type Severity Reaction Status Date / Time No Known Drug Allergies Allergy Verified 03/22/15 02:02 Medications: Current Medications Adalimumab (Humira) 80 mg SC [facility] Stop: 12/11/16 21:00 Alprazolam (Xanax) 0.75 mg PO Q8H PRN PRN Reason: Anxiety Last Admin: 12/11/16 20:48 Dose: 0.75 mg Dextrose/Water (Dextrose 50%) 25 gm SLOW IVP PRN PRN PRN Reason: Hypoglycemia Famotidine (Pepcid) 20 mg SLOW IVP BID [facility] Last Admin: 12/11/16 20:43 Dose: 20 mg Glucagon (Glucagon) 1 mg IM PRN PRN PRN Reason: Hypoglycemia Dextrose/Water (D5w) 1,000 mls @ 0 mls/hr IV .Q0M PRN; As Directed PRN Reason: Hypoglycemia Sodium Chloride (Normal Saline 0.9%) 1,000 mls @ 75 mls/hr IV .[id number] [facility] Last Admin: 12/11/16 08:02 Dose: 1,000 mls Insulin Human Lispro (Humalog) 0 units SC .BEDTIME SLIDING SC PRN PRN Reason: Bedtime Correctional Scale Insulin Human Regular (Humulin R) 0 units SC .MILD SLIDING SCALE PRN PRN Reason: Mild Correctional Scale Labetalol HCl (Normodyne) 10 mg SLOW IVP Q4H PRN PRN Reason: Systolic BP > 180 Morphine Sulfate (Morphine Sulfate) 4 mg SLOW IVP Q2H PRN PRN Reason: Pain Last Admin: 12/10/16 01:43 Dose: 4 mg Nortriptyline HCl (Pamelor) 25 mg PO HS [facility] Last Admin: 12/11/16 20:43 Dose: 25 mg Ondansetron HCl (Zofran) 4 mg IVP Q6H PRN PRN Reason: Nausea/Vomiting Last Admin: 12/09/16 19:48 Dose: 4 mg Phenol (Chloraseptic [place] 180 Ml Bot) 1 ml PO BIDPRN PRN PRN Reason: Sore Throat Last Admin: 12/10/16 18:44 Dose: 2 spr Prednisone (Prednisone) 40 mg PO ONE [facility] Stop: 12/11/16 21:00 Last Admin: 12/11/16 16:18 Dose: 40 mg Prednisone (Prednisone) 40 mg PO QAM[facility] Sodium Chloride (Flush - Normal Saline) 10 ml IVF PRN PRN PRN Reason: Saline Flush Throat Lozenges (Cepastat Lozenges) 1 skyla PO Q2H PRN PRN Reason: Sore Throat Last Admin: 12/10/16 18:48 Dose: 1 skyla
[2016-12-12] MEDS: Sodium Chloride 0.9% 1,000 ML IV SCH ×2 (04:00→15:47)
[2016-12-12 06:39] LABS: #Lymphocytes 0.3 thou/uL (1.20-3.40); #Monocytes 0.1 thou/uL (0.11-0.59); #Neutrophils 1.5 thou/uL (1.40-6.50); %Basophils 0.4 % (0.0-1.0); %Eosinophils 0.2 % (0.0-10.0); %Lymphocytes 17.1 % (21.0-51.0); %Monocytes 4.8 % (0.0-10.0); Hematocrit 19.3 % (42.0-52.0); Mean Platelet Volume 6.9 fL (7.4-10.4); Red Blood Cell (RBC) Count 2.48 mill/uL (4.70-6.10); White Blood Cell (WBC) Count 1.9 thou/uL (4.8-10.8)
[2016-12-12 07:21] LABS: Anion Gap 10 mmol/L (10-20); BUN (Urea Nitrogen) 16 mg/dL (8.4-25.7); BUN/Creatinine Ratio 26.67; Calc. Creatinine Clearance 133 mL/min (70-130); Calcium 8.5 mg/dL (7.8-10.44); Carbon Dioxide 24 mmol/L (23-31); Chloride 107 mmol/L (98-107); Estimated GFR-MDRD Greater than 90; Phosphorus 2.6 mg/dL (2.3-4.7)
[2016-12-12] MEDS: predniSONE 20 MG TAB PO SCH (08:40)
[2016-12-12] MEDS: Famotidine/PF 20 mg/2ml Vial SLOW IVP SCH (08:40)
--- NOTE | 2016-12-12 08:49 | PRG ---
DATE OF SERVICE: 12/12/2016 SUBJECTIVE: Mr. Swan feels good today. He has not had any pain or nausea. He is tolerating a ginger id diet. His abdomen is completely benign to exam. ASSESSMENT: Crohn's disease with small bowel obstruction, resolved with conservative management and IV steroids. He can follow up with Gastroenterology.
--- OUTSIDE RECORDS SUMMARY | 2016-12-12 12:38 | XMS | Clinical Summary ---
:[address] [facility] Address [address] [place] [address] Phone Care Team Providers Name Role Phone , Primary Care Provider Unavailable Allergies Not on File Current Medications Not on file Active Problems Not on file Social History Tobacco Use Types Packs/Day Years Used Date Never Assessed Sex Assigned at Date Recorded Not on file Last Filed Vital Signs Not on file Plan of Treatment Not on file Results Not on filefrom Last 3 Months
[2016-12-12] MEDS ORDERED: cloNIDine 0.1 MG TAB PO PRN (13:18)
--- NOTE | 2016-12-12 14:06 | DIS ---
DATE OF ADMISSION: 12/09/2016 DATE OF DISCHARGE: 12/12/2016 DISCHARGE DISPOSITION: Home. FOLLOWUP: 1. Follow up with primary care physician, Dr. Perales in 1 week. 2. Follow up with Dr. Cartwright/Sandra in 1-2 weeks. 3. Follow up with Oncology Clinic as scheduled. 4. Base met with CBC next week. 5. PCP to follow. 6. Please call Dr. Flores's office for prednisone taper. INPATIENT CONSULTANTS: 1. General surgery, Dr. German 2. Gastrointestinal, Dr. Cartwright. 3. Oncology, Dr. Diane. The patient was seen and examined on the day of discharge. Denies any new complaints. No chest jose luis n, shortness of breath, and palpitations reported. DISCHARGE MEDICATIONS: 1. Pepcid 20 mg b.i.d. 2. Prednisone 40 mg daily. Prescription for next 15 days was provided. Patient will call Dr. Flores 's office for prednisone taper. 3. Potassium chloride 20 mEq daily for the next 5 days. 4. Other home medications were resumed including Xanax 0.75 mg as needed, glimepiride 1 mg daily, N orco as needed, nortriptyline 25 mg at bedtime, azathioprine 200 mg daily. BRIEF HOSPITAL COURSE: The patient is a 66-year-old male with Crohn's disease who presented to the hospital with abdominal pain, nausea, and vomiting. Please refer to the history and physical dated 12/09/[address] Nair for further details. The patient was admitted to the hospital with diagnosis of small-bowel obstruction that was confirme d on the CT scan. He was seen by Gastroenterology and General Surgery. He was made n.p.o. and was placed on IV fluids with NG tube suction. IV steroids were also started due to history of Crohn's d isease. He improved with conservative measures. He has been cleared by consultants for discharge. He had some electrolyte imbalances that were gradually replaced. He received 2 units of PRBC on day of discharge. FINAL DIAGNOSES: 1. Small-bowel obstruction. 2. Crohn's disease with possible exacerbation. 3. Anxiety disorder. 4. Diabetes mellitus type 2. 5. Dehydration. 6. Pancytopenia. His hemoglobin on the day of discharge was 6.2 with WBC of 1.9 and platelet count of 34 7. Iron deficiency. Patient also received IV iron. His ferritin was 8.21 with iron of 21, TIBC 39 1 with saturation of 5%. 8. Mild protein calorie malnutrition. 9. Mild hyponatremia, corrected. 10. Hypokalemia. Potassium on the day of discharge is 3.0. He received total of 60 mEq of potassi um chloride. 11. Hypophosphatemia with phosphorus of 2.1, corrected. 12. Plan of care was discussed with the patient. He stated understanding. 13. Patient will be discharged later today once he completes his blood transfusion.
--- NOTE | 2016-12-12 17:13 | PDOC.PN ---
- Subjective Encounter Start Date: 12/12/16 Encounter Start Time: 14:00 Patient seen and examined. No new complaints. No overnight events - Objective MAR Reviewed: Yes Vital Signs & Weight: Vital Signs (12 hours) Temp Pulse Pulse Pulse Resp BP BP 12/12/16 17:11 98.7 F 80 18 179/70 H 12/12/16 16:00 98.6 F 84 17 159/94 H 12/12/16 13:47 98.5 F 110 H 18 170/77 H 12/12/16 13:33 98.6 F 103 H 18 166/74 H 12/12/16 13:09 98.6 F 103 H 18 166/74 H 12/12/16 11:36 98.5 F 87 17 161/65 H 12/12/16 10:35 98.0 F 93 18 165/78 H 12/12/16 10:21 98.4 F 85 18 164/76 H 12/12/16 08:00 97.9 F 85 17 172/71 H Pulse Ox 12/12/16 17:11 12/12/16 16:00 97 12/12/16 13:47 12/12/16 13:33 12/12/16 13:09 12/12/16 11:36 98 12/12/16 10:35 12/12/16 10:21 12/12/16 08:00 100 Weight Weight 173 lb I&O: 12/11/16 12/12/16 12/13/16 06:59 06:59 06:59 Intake Total 1650 4925 0 Output Total 875 Balance 775 4925 0 Result Diagrams: 12/12/16 05:36 12/12/16 05:36 Phys Exam - Physical Examination Constitutional: NAD Respiratory: no wheezing, no rhonchi Cardiovascular: RRR, no rub Gastrointestinal: soft, non-tender, positive bowel sounds Musculoskeletal: no edema Neurological: moves all 4 limbs Dx/Plan (1) SBO (small bowel obstruction) Code(s): K56.609 - UNSP INTESTNL OBST, UNSP TO PARTIAL VERSUS COMPLETE OBST Status: Acute Comment: due to Crohn's disease (2) Anxiety disorder Code(s): F41.9 - ANXIETY DISORDER, UNSPECIFIED Status: Chronic (3) Pancytopenia Code(s): D61.818 - OTHER PANCYTOPENIA Status: Chronic Comment: Oncology following (4) Dehydration Code(s): E86.0 - DEHYDRATION Status: Acute - Plan cont current plan of care, DVT proph w/SCDs * Hold DC per GI * Cont current mngt * 2 units PRBC ordered * AM labs * Replace electrolytes Review of Systems - Review of Systems Respiratory: negative: Cough, Dry, Shortness of Breath, Hemoptysis, SOB with Excertion, Pleuritic Pain, Sputum, Wheezing Cardiovascular: negative: Chest Pain, Palpitations, Orthopnea, Paroxysmal Noc. Dyspnea, Edema, Light Headedness, Other - Medications/Allergies Allergies/Adverse Reactions: Allergies Allergy/AdvReac Type Severity Reaction Status Date / Time No Known Drug Allergies Allergy Verified 03/22/15 02:02 Medications: Current Medications Alprazolam (Xanax) 0.75 mg PO Q8H PRN PRN Reason: Anxiety Last Admin: 12/11/16 20:48 Dose: 0.75 mg Clonidine HCl (Catapres) 0.1 mg PO Q4H PRN PRN Reason: Systolic BP > 180 Dextrose/Water (Dextrose 50%) 25 gm SLOW IVP PRN PRN PRN Reason: Hypoglycemia Famotidine (Pepcid) 20 mg PO BID [facility] Glucagon (Glucagon) 1 mg IM PRN PRN PRN Reason: Hypoglycemia Dextrose/Water (D5w) 1,000 mls @ 0 mls/hr IV .Q0M PRN; As Directed PRN Reason: Hypoglycemia Insulin Human Lispro (Humalog) 0 units SC .BEDTIME SLIDING SC PRN PRN Reason: Bedtime Correctional Scale Insulin Human Regular (Humulin R) 0 units SC .MILD SLIDING SCALE PRN PRN Reason: Mild Correctional Scale Labetalol HCl (Normodyne) 10 mg SLOW IVP Q4H PRN PRN Reason: Systolic BP > 180 Morphine Sulfate (Morphine Sulfate) 4 mg SLOW IVP Q2H PRN PRN Reason: Pain Last Admin: 12/10/16 01:43 Dose: 4 mg Nortriptyline HCl (Pamelor) 25 mg PO HS [facility] Last Admin: 12/11/16 20:43 Dose: 25 mg Ondansetron HCl (Zofran) 4 mg IVP Q6H PRN PRN Reason: Nausea/Vomiting Last Admin: 12/09/16 19:48 Dose: 4 mg Phenol (Chloraseptic [place] 180 Ml Bot) 1 ml PO BIDPRN PRN PRN Reason: Sore Throat Last Admin: 12/10/16 18:44 Dose: 2 spr Potassium Chloride (Klor-Con) 20 meq PO BID-[facility] Prednisone (Prednisone) 40 mg PO QAM-[facility] Last Admin: 12/12/16 08:40 Dose: 40 mg Sodium Chloride (Flush - Normal Saline) 10 ml IVF PRN PRN PRN Reason: Saline Flush Throat Lozenges (Cepastat Lozenges) 1 skyla PO Q2H PRN PRN Reason: Sore Throat Last Admin: 12/10/16 18:48 Dose: 1 skyla
--- NOTE | 2016-12-12 19:13 | PRG ---
DATE OF SERVICE: 12/12/2016 SUBJECTIVE: Mr. Swan feels great. He is tolerating his solid diet well. He has no abdominal pain . PHYSICAL EXAMINATION: VITAL SIGNS: Temperature 98.6, pulse 84, blood pressure 159/94. GENERAL: He is in no acute distress. He is alert and oriented. LUNGS: Clear to auscultation bilaterally. HEART: Regular rate and rhythm without murmur. ABDOMEN: Soft, nontender, nondistended. Bowel sounds are present. EXTREMITIES: No lower extremity edema. LABORATORY DATA: Creatinine 0.6, ferritin was 8.2, albumin 3.2. White blood cell count 1.9 with 77 .6% neutrophils, hemoglobin 6.2, platelets 34. IMPRESSION: 1. Exacerbation of small bowel Crohn disease presenting with small-bowel obstruction. The small-bonny wel obstruction is resolved. He is feeling much better now having received IV steroids. He receive d Humira 80 mg today and has been on 80 mg every 2 weeks. He was on azathioprine 200 mg daily as an outpatient prior to admission. 2. Pancytopenia. His white blood cell count dropped from 5.2 two days ago to 3.3 yesterday to 1.9 today. Absolute neutrophil count is 1500, platelets 34,000. He is confirmed to have iron deficienc y and received IV iron this admission. His hemoglobin; however, has dropped down further today. He matology has evaluated the patient and felt this is likely due to the azathioprine. His last dose o f azathioprine was Saturday morning, 12/08/2016. He has had mild decrease in white blood cell count previously back in 06/2016 and is a white blood cell count was 2.6; however, this is lower than it has been previously. His hemoglobin is also lower than it has been in the past, relative to the one s he has had drawn at this institution. RECOMMENDATIONS: 1. He received Humira 80 mg today. 2. He is on prednisone 40 mg daily. 3. Discontinue azathioprine. I will obtain azathioprine metabolite level low; however, I am unsure how accurate this result will be with his last dose having been 4 days ago. 4. Prednisone taper with prednisone 40 mg daily for a week, 30 mg daily for a week, 20 mg daily for a week, 10 mg daily for a week, 5 mg daily for a week and then discontinue. 5. I would delay discharge until we see the trend of his blood counts tomorrow morning. If he cont inues to drop his white blood cell count, then I would delay discharge further. Hematology is follo wing.
[2016-12-12] MEDS: Nortriptyline HCl 25 MG CAP PO SCH (21:13)
[2016-12-12] MEDS: ALPRAZolam 0.25 MG TAB PO PRN (21:14)
[2016-12-12] MEDS: Famotidine 20 MG TAB PO SCH (21:14)
[2016-12-13 06:50] LABS: Mean Platelet Volume 9.1 fL (7.4-10.4); Red Blood Cell (RBC) Count 3.39 mill/uL (4.70-6.10); White Blood Cell (WBC) Count 2.2 thou/uL (4.8-10.8)
[2016-12-13 06:56] LABS: Anion Gap 7 mmol/L (10-20); BUN (Urea Nitrogen) 12 mg/dL (8.4-25.7); BUN/Creatinine Ratio 17.65; Calc. Creatinine Clearance 117 mL/min (70-130); Calcium 8.9 mg/dL (7.8-10.44); Carbon Dioxide 29 mmol/L (23-31); Chloride 105 mmol/L (98-107); Estimated GFR-MDRD Greater than 90; Magnesium 1.8 mg/dL (1.6-2.6); Phosphorus 2.5 mg/dL (2.3-4.7)
[2016-12-13] MEDS ORDERED: Potassium Chloride 40 MEQ in Premix Bag 1 BAG IVPB SCH (07:15)
[2016-12-13] MEDS ORDERED: Potassium Chloride 40 MEQ, Admixture Fee 1 EACH in Sodium Chloride 0.9% 250 ML 250 ML IVPB SCH (07:30)
[2016-12-13 07:42] LABS: Anisocytosis MODERATE=16-30 cells (100X) (0-5/hpf); Band 2 % (5-11); Hypochromia SLIGHT = 6-15 cells (100X) (0-5/hpf); Neutrophil 74 % (42-75); Polychromasia MODERATE = 3-4 cells (100X) (0-2/hpf)
[2016-12-13] MEDS: Famotidine 20 MG TAB PO SCH (08:36)
[2016-12-13] MEDS: predniSONE 20 MG TAB PO SCH (08:36)
--- NOTE | 2016-12-13 11:26 | PDOC.PN ---
- Subjective Encounter Start Date: 12/13/16 Encounter Start Time: 07:00 -: old records requested/rev Patient seen and examined. No new complaints. No overnight events - Objective MAR Reviewed: Yes Vital Signs & Weight: Vital Signs (12 hours) Temp Pulse Resp BP Pulse Ox 12/13/16 08:52 98.3 F 92 16 178/78 H 100 12/13/16 04:00 97.9 F 80 16 139/72 97 12/13/16 00:00 97.9 F 78 16 148/68 H 98 Weight Weight 173 lb I&O: 12/12/16 12/13/16 12/14/16 06:59 06:59 06:59 Intake Total 4925 1460 Balance 4925 1460 Result Diagrams: 12/13/16 06:11 12/13/16 06:11 Additional Labs: Accuchecks 12/13/16 05:00 POC Glucose 97 Phys Exam - Physical Examination Constitutional: NAD HEENT: PERRLA, moist MMs, sclera anicteric Neck: no JVD, supple Respiratory: no wheezing, no rales, no rhonchi Cardiovascular: RRR, no significant murmur, no rub Gastrointestinal: soft, non-tender, no distention, positive bowel sounds Musculoskeletal: no edema, pulses present Neurological: non-focal, normal sensation, moves all 4 limbs Psychiatric: normal affect, A&O x 3 Skin: no rash, normal turgor Dx/Plan (1) Dehydration Code(s): E86.0 - DEHYDRATION Status: Acute (2) SBO (small bowel obstruction) Code(s): K56.609 - UNSP INTESTNL OBST, UNSP TO PARTIAL VERSUS COMPLETE OBST Status: Acute Comment: due to Crohn's disease (3) Anxiety disorder Code(s): F41.9 - ANXIETY DISORDER, UNSPECIFIED Status: Chronic (4) Pancytopenia Code(s): D61.818 - OTHER PANCYTOPENIA Status: Chronic Comment: Oncology following - Plan cont current plan of care * see discharge summery * medication reviewed as below * replace potassium. Review of Systems - Review of Systems Eyes: negative: Pain, Vision Change, Conjunctivae Inflammation, Eyelid Inflammation, Redness, Other ENT: negative: Ear Pain, Ear Discharge, Nose Pain, Nose Discharge, Nose Congestion, Mouth Pain, Mouth Swelling, Throat Pain, Throat Swelling, Other Respiratory: negative: Cough, Dry, Shortness of Breath, Hemoptysis, SOB with Excertion, Pleuritic Pain, Sputum, Wheezing Cardiovascular: negative: Chest Pain, Palpitations, Orthopnea, Paroxysmal Noc. Dyspnea, Edema, Light Headedness, Other Gastrointestinal: negative: Nausea, Vomiting, Abdominal Pain, Diarrhea, Constipation, Melena, Hematochezia, Other Genitourinary: negative: Dysuria, Frequency, Incontinence, Hematuria, Retention , Other Musculoskeletal: negative: Neck Pain, Shoulder Pain, Arm Pain, Back Pain, Hand Pain, Leg Pain, Foot Pain, Other - Medications/Allergies Allergies/Adverse Reactions: Allergies Allergy/AdvReac Type Severity Reaction Status Date / Time No Known Drug Allergies Allergy Verified 03/22/15 02:02 Medications: Current Medications Alprazolam (Xanax) 0.75 mg PO Q8H PRN PRN Reason: Anxiety Last Admin: 12/12/16 21:14 Dose: 0.75 mg Clonidine HCl (Catapres) 0.1 mg PO Q4H PRN PRN Reason: Systolic BP > 180 Dextrose/Water (Dextrose 50%) 25 gm SLOW IVP PRN PRN PRN Reason: Hypoglycemia Famotidine (Pepcid) 20 mg PO BID [facility] Last Admin: 12/13/16 08:36 Dose: 20 mg Glucagon (Glucagon) 1 mg IM PRN PRN PRN Reason: Hypoglycemia Dextrose/Water (D5w) 1,000 mls @ 0 mls/hr IV .Q0M PRN; As Directed PRN Reason: Hypoglycemia Potassium Chloride 40 meq/Miscellaneous Medication 1 each/ Sodium Chloride 270 mls @ 67.5 mls/hr IVPB NOW [facility] Stop: 12/13/16 12:00 Last Admin: 12/13/16 08:35 Dose: 270 mls Insulin Human Lispro (Humalog) 0 units SC .BEDTIME SLIDING SC PRN PRN Reason: Bedtime Correctional Scale Insulin Human Regular (Humulin R) 0 units SC .MILD SLIDING SCALE PRN PRN Reason: Mild Correctional Scale Labetalol HCl (Normodyne) 10 mg SLOW IVP Q4H PRN PRN Reason: Systolic BP > 180 Morphine Sulfate (Morphine Sulfate) 4 mg SLOW IVP Q2H PRN PRN Reason: Pain Last Admin: 12/10/16 01:43 Dose: 4 mg Nortriptyline HCl (Pamelor) 25 mg PO HS [facility] Last Admin: 12/12/16 21:13 Dose: 25 mg Ondansetron HCl (Zofran) 4 mg IVP Q6H PRN PRN Reason: Nausea/Vomiting Last Admin: 12/09/16 19:48 Dose: 4 mg Phenol (Chloraseptic [place] 180 Ml Bot) 1 ml PO BIDPRN PRN PRN Reason: Sore Throat Last Admin: 12/10/16 18:44 Dose: 2 spr Potassium Chloride (Klor-Con) 20 meq PO BID-[facility] Last Admin: 12/13/16 08:36 Dose: 20 meq Prednisone (Prednisone) 40 mg PO QAM-[facility] Last Admin: 12/13/16 08:36 Dose: 40 mg Sodium Chloride (Flush - Normal Saline) 10 ml IVF PRN PRN PRN Reason: Saline Flush Throat Lozenges (Cepastat Lozenges) 1 skyla PO Q2H PRN PRN Reason: Sore Throat Last Admin: 12/10/16 18:48 Dose: 1 skyla
--- NOTE | 2016-12-13 11:41 | ADD-DIS ---
Please see discharge summary dictated by Dr. Cheung on 12/12/[address]. Cartwright rec ommended to observe this patient yesterday. His hemoglobin improved from 6.2-9.0 today, his WBC cou nt is 2.2 and platelet count is 46. His potassium is 2.9 and that is why the patient is getting IV potassium supplementation. At this point, the patient is eager to go home today. He has tolerated Humira therapy and he does not have anymore side effects. He is hemodynamically stable. The patient is seen and examined at bedside today. Please see my progress note from today for furth er details. The patient is medically stable for discharge after potassium supplementation.
[2016-12-13 12:11] VITALS: TEMP 98.6
[2016-12-13 15:17] VITALS: BP 177/86
== END 2016-12-13 15:40 | disposition home or self-care (01) | DRG 386 ==
LOC: ERS 13:21 → SURG A 16:44
PROVIDERS: ADMIT Hospitalist; ATTEND Hospitalist
PROC: 30233N1 Transfusion of Nonautologous Red Blood Cells into Peripheral Vein, Percutaneous Approach (ICD-10-PCS; principal; 2016-12-12)
DX: K50.012 Crohn's disease of small intestine with intestinal obstruction (principal); D61.818 Other pancytopenia; D69.59 Other secondary thrombocytopenia; E44.1 Mild protein-calorie malnutrition; E87.1 Hypo-osmolality and hyponatremia; K90.9 Intestinal malabsorption, unspecified; T45.1X5A Adverse effect of antineoplastic and immunosuppressive drugs, initial encounter; D50.8 Other iron deficiency anemias; E83.39 Other disorders of phosphorus metabolism; E11.9 Type 2 diabetes mellitus without complications; E86.0 Dehydration; E87.6 Hypokalemia; F41.9 Anxiety disorder, unspecified; Z68.26 Body mass index [BMI] 26.0-26.9, adult; I25.10 Atherosclerotic heart disease of native coronary artery without angina pectoris; Z86.12 Personal history of poliomyelitis; Z87.891 Personal history of nicotine dependence
CPT/HCPCS: 36415; 36416; 36430; 74000; 74177; 74250; 80048; 80053; 80069; 81003; 82553; 82728; 83540; 83550; 83690; 83735; 84100; 84484; 85025; 86850; 86900; 86901; 93005; 96361; 96374; 96375; 96376; J1750; J2270; J2405; J2920; J2930; J3480; J7050; J7506; P9016; S0028

== ENCOUNTER 2017-03-21 11:46 | Inpatient (IN) | payer MEDICARE ==
[2017-03-21 12:46] LABS: #Lymphocytes 0.4 thou/uL (1.20-3.40); #Monocytes 0.3 thou/uL (0.11-0.59); #Neutrophils 3.9 thou/uL (1.40-6.50); %Eosinophils 0.6 % (0.0-10.0); %Lymphocytes 8.1 % (21.0-51.0); %Monocytes 5.5 % (0.0-10.0); %Neutrophils 85.9 % (42.0-75.0); Hemoglobin 12.2 g/dL (14.0-18.0); Mean Corpuscular HGB CONC 31.5 g/dL (32.0-36.0); Mean Corpuscular Hemoglobin 28.1 pg (27.0-31.0); Mean Corpuscular Volume 89.2 fl (80.0-94.0); Mean Platelet Volume 6.1 fL (7.4-10.4); Platelet Count 47 thou/uL (130-400); RBC Distribution Width 19.8 % (11.5-14.5); Red Blood Cell (RBC) Count 4.35 mill/uL (4.70-6.10); White Blood Cell (WBC) Count 4.6 thou/uL (4.8-10.8)
[2017-03-21 13:05] LABS: ALT (SGPT) 15 U/L (8-55); AST (SGOT) 21 U/L (5-34); Albumin 4.2 g/dL (3.4-4.8); Alkaline Phosphatase 149 U/L (40-150); Anion Gap 14 mmol/L (10-20); BUN (Urea Nitrogen) 11 mg/dL (8.4-25.7); Bilirubin, Total 0.8 mg/dL (0.2-1.2); Calc. Creatinine Clearance 0 mL/min (70-130); Calcium 9.8 mg/dL (7.8-10.44); Carbon Dioxide 28 mmol/L (23-31); Chloride 101 mmol/L (98-107); Estimated GFR-MDRD Greater than 90; Globulin 3.3 g/dL (2.4-3.5); Glucose 149 mg/dL (80-115); Potassium 4.8 mmol/L (3.5-5.1); Protein, Total 7.5 g/dL (5.8-8.1); Sodium 138 mmol/L (136-145)
[2017-03-21] MEDS ORDERED: Ondansetron HCl/PF 4 MG/2 ML Vial ONE ×2 (14:43)
[2017-03-21] MEDS ORDERED: methylPREDNISolone Sod Succ/PF 125 MG/2 ML VIAL ONE (15:23)
[2017-03-21] MEDS ORDERED: Sodium Chloride 0.9% 1,000 ML IV SCH (17:43)
[2017-03-21] MEDS ORDERED: Ondansetron ODT 4 MG TAB SL PRN (17:43)
[2017-03-21] MEDS ORDERED: Ondansetron HCl/PF 4 MG/2 ML Vial IVP PRN ×2 (17:43→19:20)
[2017-03-21] MEDS ORDERED: Loperamide HCl 2 MG CAP PO PRN (19:20)
[2017-03-21] MEDS ORDERED: hydrALAZINE 20 MG/ML VIAL SLOW IVP PRN (19:20)
[2017-03-21] MEDS ORDERED: Ondansetron ODT 4 MG TAB PO PRN (19:20)
[2017-03-21] MEDS ORDERED: HYDROcodone/Acetaminophen 10/325 mg Tablet PO PRN (19:20)
[2017-03-21] MEDS ORDERED: Acetaminophen 500 MG TAB PO PRN (19:20)
[2017-03-21] MEDS ORDERED: Dextrose 5% in Water 1,000 ML IV PRN (19:31)
[2017-03-21] MEDS ORDERED: Dextrose 50% Abboject 50 ML SYRINGE SLOW IVP PRN (19:31)
[2017-03-21] MEDS: Sodium Chloride 0.9% 1,000 ML IV SCH (21:13)
[2017-03-21] MEDS: Famotidine 20 MG TAB PO SCH (21:13)
[2017-03-21] MEDS: Nortriptyline HCl 25 MG CAP PO SCH (21:13)
[2017-03-21] MEDS: ALPRAZolam 0.25 MG TAB PO PRN (21:14)
[2017-03-21 22:29] VITALS: BMI 24.9
--- NOTE | 2017-03-22 01:03 | HP ---
DATE OF ADMISSION: 03/21/2017 PRIMARY CARE PHYSICIAN: Dr. Franc Perales. PRIMARY SUPERVISOR POWER REACTOR: Dr. Uriel Flores. CHIEF COMPLAINT: Abdominal pain with nausea and vomiting. HISTORY OF PRESENT ILLNESS: This is a 66-year-old male who presented to [facility] Emergency Department complaining of increased abdominal pain, dull, aching with assoc iated nausea and vomiting. Patient states he has a significant history of Crohn's disease diagnosed by capsule endoscopy involving the small intestine. Patient has had multiple admissions due to Crohn 's flare receiving IV steroids as well as antiemetics and IV pain control. Patient denies any specif ic change to his regular dietary regimen, travel history, fever, chills, or direct trauma to the abdo men. Patient does admit to intermittent blood in the stool, which he says is common with his Crohn's . Patient was notably admitted to [facility] in 11/2016, receiving 2 units of packed red blood cells during the admission. Patient was placed on a steroid tapering dose after epifanio gruber and states he has had no specific incidences since his last admission. Patient does state he receives Humira injections 2 times at the first and fourth week of the month. Patient states he has been compliant with his treatment directed by his special effects person. Patient denies any specific n ight sweats, change to his appetite, but states his last meal was approximately 36 hours prior to thi s admission. Patient does admit that his stool is typically loose and has chronic diarrhea. In the emergency room, patient underwent general evaluation with metabolic survey showing mild pancytopenia, which is chronic. Patient received Solu-Medrol 125 mg x1 dose, morphine sulfate 4 mg and Zofran 8 m g. Patient also received 1 liter of normal saline. Patient states his symptoms had improved with th is intervention and was transferred to the medical floor for evaluation. PAST MEDICAL HISTORY: 1. Crohn's ileitis with intermittent flare. 2. Coronary artery disease. 3. Diabetes mellitus, type 2. 4. Hypertension. 5. Polio as a toddler. PAST SURGICAL HISTORY: 1. Status post cholecystectomy. 2. Status post right ankle surgery. 3. Status post cervical spine fusion. 4. Status post lower lumbar laminectomy. CURRENT MEDICATIONS: 1. Xanax 0.75 mg p.o. q.8 hours p.r.n. 2. Pepcid 20 mg p.o. b.i.d. 3. Glimepiride 1 mg p.o. q.a.m. 4. [place] 10/325 mg 1 tab p.o. q.6 hours p.r.n. pain. 5. Nortriptyline 25 mg p.o. at bedtime. 6. Humira 2 injections on the first and fourth week of the month. ALLERGIES: No known drug allergies. FAMILY HISTORY: No inheritable disease per patient report. SOCIAL HISTORY: Remote history of tobacco use, quitting in the . No alcohol or illicit drug us e. REVIEW OF SYSTEMS: The following complete review of systems was otherwise negative except as stated per HPI: Constitutional: Weight loss or gain, ability to conduct usual activities. Skin: Rash, it evangelist. Eyes: Double vision, pain. ENT/Mouth: Nose bleeding, neck stiffness, pain, tenderness. Ca rdiovascular: Palpitations, dyspnea on exertion, orthopnea. Respiratory: Shortness of breath, whee zing, cough, hemoptysis, fever, or night sweats. Gastrointestinal: Poor appetite, abdominal pain, h eartburn, nausea, vomiting, constipation, or diarrhea. Genitourinary: Urgency, frequency, dysuria, nocturia. Musculoskeletal: Pain, swelling. Neurologic/Psychiatric: Anxiety, depression. Allergy/ Immunologic: Skin rash, bleeding tendency. PHYSICAL EXAMINATION: VITAL SIGNS: On admission blood pressure 166/83, pulse 95, respiratory rate 18, temperature 97.5 deg heber Fahrenheit, O2 saturation 97% on room air. GENERAL APPEARANCE: This is a 66-year-old male, alert and oriented x3, pleasant, conversan t, in no acute distress. HEENT: Pupils are equal, round, and reactive to light and accommodation. Extraocular muscles are in tact. No scleral icterus, no conjunctival injection. Nares patent. OP is clear. Teeth in fair rep air. NECK: Supple, no cervical adenopathy, no thyromegaly, no carotid bruits, no JVD appreciated. Cervic al spine with full active and passive range of motion. No meningeal signs appreciated. CHEST: Right lower lung conklin with coarse breath sounds and expiratory rhonchi. CARDIOVASCULAR: S1, S2 with tachycardia. ABDOMEN: Rounded, soft with mild tenderness to palpation in the mid epigastrium. No rebound or guar ding noted. No palpable mass. EXTREMITIES: Warm and dry with fair turgor. No clubbing, cyanosis, or asymmetric edema appreciated. Pulses are palpable distally at the dorsalis pedis, posterior tibial, and popliteal arteries bilate rally. Capillary refill less than 2 seconds. NEUROLOGIC: Cranial nerves II-XII are grossly intact. No focal or lateralizing signs appreciated. PERTINENT LABORATORY AND X-RAY FINDINGS: Basic metabolic profile within normal limits. Calcium 9.8. LFTs within normal limits. CBC showed a white blood cell count of 4.6, hemoglobin 12.2, hematocrit 39, platelet count 47 with 86% neutrophils. ASSESSMENT AND PLAN: 1. Crohn's flare. Patient will be admitted to the medical floor. We will continue intravenous norm al saline at 100 mL per hour. Continue Solu-Medrol 40 mg IV q.6 hours. Consult GI service for any f urther recommendations and consideration for adjustment to outpatient maintenance therapy. Morphine sulfate 4 mg IV every 4 hours p.r.n. abdominal pain. 2. Abdominal pain secondarily to #1. Continue symptomatic and supportive management as outlined in #1. Add [place] 10/325 mg 1 tab p.o. q.6 hours p.r.n. pain. 3. Nausea and vomiting secondary to #1. Continue Zofran 4 mg IV q.6 hours p.r.n. 4. Chronic pancytopenia. We will continue to monitor clinically. Likely secondary to chronic Humir a. Repeat CBC in the a.m. 5. Hypertension. Resume home antihypertensive regimen and monitor clinical response. 6. Diabetes mellitus, type 2. We will provide insulin sliding scale for reflexive coverage. Contin ue Amaryl 1 mg p.o. q.a.m. Accu-Cheks a.c. and at bedtime. 7. Prophylaxis. Sequential compression devices while in bed. Pepcid 20 mg p.o. b.i.d. 8. Code status is FULL. Surrogate medical decision maker is patient's spouse.
[2017-03-22 04:39] LABS: ALT (SGPT) 22 U/L (8-55); AST (SGOT) 28 U/L (5-34); Albumin 3.6 g/dL (3.4-4.8); Alkaline Phosphatase 132 U/L (40-150); Anion Gap 14 mmol/L (10-20); BUN (Urea Nitrogen) 12 mg/dL (8.4-25.7); Calc. Creatinine Clearance 128 mL/min (70-130); Calcium 9.1 mg/dL (7.8-10.44); Carbon Dioxide 20 mmol/L (23-31); Chloride 101 mmol/L (98-107); Estimated GFR-MDRD Greater than 90; Globulin 2.6 g/dL (2.4-3.5); Glucose 191 mg/dL (80-115); Potassium 4.4 mmol/L (3.5-5.1); Protein, Total 6.2 g/dL (5.8-8.1); Sodium 131 mmol/L (136-145)
[2017-03-22 05:02] LABS: Band 13 % (5-11); Hemoglobin 11.4 g/dL (14.0-18.0); Lymphocytes 1 % (21-51); MDiff Complete? YES; Mean Corpuscular HGB CONC 32.4 g/dL (32.0-36.0); Mean Corpuscular Hemoglobin 28.7 pg (27.0-31.0); Mean Corpuscular Volume 88.5 fl (80.0-94.0); Mean Platelet Volume 6.4 fL (7.4-10.4); Neutrophil 86 % (42-75); Platelet Count 46 thou/uL (130-400); RBC Distribution Width 19.5 % (11.5-14.5); Red Blood Cell (RBC) Count 3.98 mill/uL (4.70-6.10); White Blood Cell (WBC) Count 2.8 thou/uL (4.8-10.8)
[2017-03-22] MEDS: Sodium Chloride 0.9% 1,000 ML IV SCH ×2 (06:16→17:08)
[2017-03-22] MEDS: HumaLOG 300 UNITS/3 ML VIAL SC PRN ×4 (06:19→20:10)
[2017-03-22] MEDS: Glimepiride 1 MG TAB PO SCH (07:59)
[2017-03-22] MEDS: Famotidine 20 MG TAB PO SCH ×2 (07:59→20:05)
[2017-03-22] MEDS ORDERED: Ondansetron ODT 4 MG TAB PO PRN (15:09)
[2017-03-22] MEDS ORDERED: Sodium Chloride 0.9% 1,000 ML IV SCH (15:10)
--- NOTE | 2017-03-22 16:00 | PDOC.PN ---
- Subjective Encounter Start Date: 03/22/17 Encounter Start Time: 15:35 Subjective: f/u for Crohn's flare. Feeling better overall. Minimal abd discomfort. No -: N/V. 2 BM's without blood. Tolerating current clear liquids. Voiding -: regularly. - Objective Resuscitation Status: Resuscitation Status FULL:Full Resuscitation MAR Reviewed: Yes Vital Signs & Weight: Vital Signs (12 hours) Temp Pulse Resp BP Pulse Ox 03/22/17 11:17 98.1 F 107 H 18 161/77 H 97 03/22/17 08:07 105 H 98 03/22/17 08:00 97.9 F 111 H 18 97 03/22/17 07:47 97.9 F 111 H 18 148/78 H 98 03/22/17 04:00 98.1 F 110 H 18 160/81 H 97 Weight Weight 163 lb 12.855 oz I&O: 03/21/17 03/22/17 03/23/17 06:59 06:59 06:59 Intake Total 1061 Balance 1061 Result Diagrams: 03/22/17 03:58 03/22/17 03:58 Additional Labs: Accuchecks 03/22/17 10:50 POC Glucose 284 H Phys Exam - Physical Examination Constitutional: NAD HEENT: PERRLA, oral pharynx no lesions Neck: no JVD, supple Respiratory: no wheezing, clear to auscultation bilateral Cardiovascular: RRR Gastrointestinal: soft, non-tender, no distention, positive bowel sounds Musculoskeletal: no edema, pulses present Neurological: normal sensation, moves all 4 limbs Psychiatric: A&O x 3 Skin: normal turgor, cap refill <2 seconds Dx/Plan (1) Crohns disease Code(s): K50.90 - CROHN'S DISEASE, UNSPECIFIED, WITHOUT COMPLICATIONS Status: Acute Comment: Improved, continue Solumedrol 40mg IV q6h, decrease IVF's 100ml /h, GI consult pending (2) Abdominal pain Code(s): R10.9 - UNSPECIFIED ABDOMINAL PAIN Status: Acute Qualifiers: Abdominal location: epigastric Qualified Code(s): R10.13 - Epigastric pain Comment: Secondary to #1, improved (3) Nausea & vomiting Code(s): R11.2 - NAUSEA WITH VOMITING, UNSPECIFIED Status: Acute Comment: Resolved (4) Pancytopenia Code(s): D61.818 - OTHER PANCYTOPENIA Status: Chronic Comment: Chronic, stable. No transfusion required, repeat CBC in am - Plan out of bed/ambulate, DVT proph w/SCDs Stable overall -: Continue Solumedrol another 24h -: Decrease IVF's -: Advance to [facility] soft diet -: AM lab: CBC * Likely home in 24h
[2017-03-22] MEDS: cloNIDine 0.1 MG TAB PO PRN (17:02)
[2017-03-22] MEDS: Dicyclomine 20 MG TAB PO SCH ×2 (17:02→20:05)
[2017-03-22] MEDS: Nortriptyline HCl 25 MG CAP PO SCH (20:05)
[2017-03-22] MEDS: ALPRAZolam 0.25 MG TAB PO PRN (20:06)
--- NOTE | 2017-03-23 00:22 | CON ---
DATE OF CONSULTATION: 03/22/2017 CHIEF COMPLAINT: Abdominal pain. HISTORY OF PRESENT ILLNESS: Mr. Swan is a 66-year-old man with a history of small bowel Crohn's dis ease, had relatively sudden onset of cramping right lower quadrant abdominal pain around yesterday af ternoon, which was associated with an episode of nausea and vomiting. He came to the emergency room for further care. He was given medicine for the ER and started on steroids and his pain is since res olved. He has tolerated a solid diet today. He has had no fever with this. He has chronic diarrhea with 4 or 5 loose to liquidy stools per day. He has had some blood in the stool over the last coupl e of days. The last time he was evaluated by our GI practice was when he came in the hospital and sa w him in 11/2016. He has continued taking his medicines; however, since then. He has been followed by Dr. Flores as an outpatient. He has been taking Humira 80 mg every 2 weeks. He has been on azathio jo 200 mg daily and he has been off the steroid since he completed a course after the last hospita lization in November. He had been on a prolonged course of steroids prior to that. PAST MEDICAL HISTORY: Crohn's disease diagnosed in 2007 by capsule endoscopy showing small bowel inv olvement. PAST SURGICAL HISTORY: Cholecystectomy, ankle surgery, cervical spine surgery, back surgery and EGD and colonoscopy. FAMILY HISTORY: Negative for GI malignancy. SOCIAL HISTORY: Quit smoking years ago. No alcohol or drugs. ALLERGIES: No known drug allergies. MEDICATIONS: Prior to admission, Humira 80 mg every 2 weeks, azathioprine 200 mg daily, metformin, n ortriptyline, glimepiride, and alprazolam. REVIEW OF SYSTEMS: Negative x10 systems reviewed except as stated in the history of present illness. PHYSICAL EXAMINATION: VITAL SIGNS: Temperature is 98.1, pulse 88, blood pressure 161/79. GENERAL: He is in no acute distress. He is alert and oriented x3. HEENT: Eyes have no scleral icterus. Oropharynx is clear without lesions. NECK: No cervical or supraclavicular lymphadenopathy. LUNGS: Clear to auscultation bilaterally. HEART: Regular rate and rhythm without murmur. ABDOMEN: Soft, nontender, nondistended. Bowel sounds are present. EXTREMITIES: No lower extremity edema. LABORATORY DATA: White blood cell count 2.2, hemoglobin 11.4, platelets 46,000. INR 1.0, ferritin i n 11/2016 was 8.2, bilirubin is 1.0, AST 28, ALT 22, alkaline phosphatase 132, albumin 3.6, creatinin e 0.59. Last hospitalization, he did have thiopurine metabolite levels drawn, which were below the t herapeutic range. He had got few days without his azathioprine prior to that. He also had Humira an tibodies, which were negative by serology. IMPRESSION: 1. Mild acute exacerbation of small bowel Crohn's. He has responded well to steroids and is now anjelica erating a solid diet. 2. Pancytopenia. It is unclear if this could be due to azathioprine. He is receiving 200 mg every day. Hold back the azathioprine dose down to 100 mg daily. He does take this intermittently. The m etabolite levels from this previously were below the therapeutic range; however, his compliance has b een spotty. He takes azathioprine probably 5 days a week. RECOMMENDATIONS: 1. Change to oral prednisone tomorrow, 40 mg for a week, 30 mg for a week, 20 mg for a week, 10 mg f or a week, 5 mg for a week, then discontinue. 2. Reduce azathioprine to 100 mg daily. 3. Continue Humira 80 mg every 2 weeks as scheduled. 4. Anticipate discharge home tomorrow. He will need to follow up in GI clinic with Dr. Flores for man agement of the medications. His last colonoscopy was 05/2013, which was negative except for internal hemorrhoids.
[2017-03-23] MEDS: Sodium Chloride 0.9% 1,000 ML IV SCH ×2 (02:44→11:54)
[2017-03-23 05:38] LABS: Band 6 % (5-11); Hemoglobin 9.5 g/dL (14.0-18.0); Lymphocytes 4 % (21-51); MDiff Complete? YES; Mean Corpuscular Hemoglobin 28.1 pg (27.0-31.0); Mean Corpuscular Volume 87.8 fl (80.0-94.0); Mean Platelet Volume 6.3 fL (7.4-10.4); Monocytes 5 % (0-10); Neutrophil 85 % (42-75); PLT Morphology Comment Appears Decreased; Platelet Count 37 thou/uL (130-400); RBC Distribution Width 19.4 % (11.5-14.5); Red Blood Cell (RBC) Count 3.37 mill/uL (4.70-6.10); White Blood Cell (WBC) Count 2.6 thou/uL (4.8-10.8)
[2017-03-23] MEDS: HumaLOG 300 UNITS/3 ML VIAL SC PRN ×3 (05:54→20:56)
[2017-03-23] MEDS ORDERED: Glimepiride 2 MG TAB PO SCH (07:30)
[2017-03-23] MEDS: Famotidine 20 MG TAB PO SCH ×2 (08:43→20:54)
[2017-03-23] MEDS: predniSONE 20 MG TAB PO SCH (08:43)
[2017-03-23] MEDS: Dicyclomine 20 MG TAB PO SCH ×3 (08:43→17:50)
[2017-03-23] MEDS: Glimepiride 1 MG TAB PO SCH (08:46)
[2017-03-23] MEDS ORDERED: azaTHIOprine 50 MG TAB PO SCH ×2 (09:00)
[2017-03-23] MEDS ORDERED: Dicyclomine 20 MG TAB PO PRN (17:29)
--- NOTE | 2017-03-23 17:34 | PDOC.PN ---
- Subjective Encounter Start Date: 03/23/17 Encounter Start Time: 17:00 Patient seen and examined. No new complaints. No overnight events. Abd pain improving - Objective Resuscitation Status: Resuscitation Status FULL:Full Resuscitation MAR Reviewed: Yes Vital Signs & Weight: Vital Signs (12 hours) Temp Pulse Resp BP Pulse Ox 03/23/17 16:50 98.3 F 80 18 158/87 H 99 03/23/17 11:51 97.8 F 100 16 176/88 H 98 03/23/17 08:00 97.8 F 100 16 98 03/23/17 07:51 97.8 F 100 16 173/87 H 98 Weight Weight 163 lb 12.855 oz I&O: 03/22/17 03/23/17 03/24/17 06:59 06:59 06:59 Intake Total 1061 3143 Balance 1061 3143 Result Diagrams: 03/23/17 04:37 03/22/17 03:58 Additional Labs: Accuchecks 03/23/17 03/23/17 03/23/17 15:42 10:34 04:59 POC Glucose 182 H 221 H 227 H 03/22/17 20:10 POC Glucose 232 H Phys Exam - Physical Examination Constitutional: NAD Respiratory: no wheezing, no rhonchi Cardiovascular: RRR, no rub Gastrointestinal: soft, positive bowel sounds Musculoskeletal: no edema Neurological: moves all 4 limbs Dx/Plan - Plan out of bed/ambulate, DVT proph w/SCDs IMPRESSION: 1. Crohn's exacerbation 2. Pancytopenia 3. HTN 4. DM2 - uncontrolled due to steroids 5. Vit D def/ h/o iron def/ hyponatremia PLAN: * GI following - Case d/w Dr Cartwright - Oncology consult for pancytopenia as outpt. Will also get Azathioprine metabolite levels, reti count, Vit B12, folic acid and iron in AM * Start MVM and Vit D supp * AM labs * DC IVF * Prednisone taper per GI note 2/2 * Cont to monitor * Cont sliding scale * Cont current meds as below. * Sánchez Glimepiride to 4 mg daily Review of Systems - Review of Systems Respiratory: negative: Cough, Dry, Shortness of Breath, Hemoptysis, SOB with Excertion, Pleuritic Pain, Sputum, Wheezing Cardiovascular: negative: chest pain, palpitations, orthopnea, paroxysmal nocturnal dyspnea, edema, light headedness - Medications/Allergies Allergies/Adverse Reactions: Allergies Allergy/AdvReac Type Severity Reaction Status Date / Time No Known Drug Allergies Allergy Verified 03/22/15 02:02 Medications: Current Medications Acetaminophen (Tylenol) 1,000 mg PO Q6H PRN PRN Reason: Headache/Fever or Mild Pain Hydrocodone Bitart/Acetaminophen (Hooper 10/325) 1 tab PO Q6HR PRN PRN Reason: Pain Alprazolam (Xanax) 0.75 mg PO Q8H PRN PRN Reason: Anxiety Last Admin: 03/22/17 20:06 Dose: 0.75 mg Calcium/Vitamin D (Caltrate 600 + Vit D) 1 tab PO BID-[facility] Clonidine (Catapres) 0.1 mg PO Q4H PRN PRN Reason: Systolic BP > 180 Last Admin: 03/22/17 17:02 Dose: 0.1 mg Cyanocobalamin (Vitamin B-12) 1,000 mcg PO DAILY [facility] Dextrose/Water (Dextrose 50%) 25 gm SLOW IVP PRN PRN PRN Reason: Hypoglycemia Dicyclomine HCl (Bentyl) 20 mg PO QID PRN PRN Reason: GI cramping Ergocalciferol (Drisdol) 1.25 mg PO Q7DAYS [facility] Famotidine (Pepcid) 20 mg PO BID [facility] Last Admin: 03/23/17 08:43 Dose: 20 mg Folic Acid (Folvite) 1 mg PO DAILY [facility] Glimepiride (Amaryl) 2 mg PO DAILY-[facility] Last Admin: 03/23/17 08:46 Dose: 2 mg Glucagon (Glucagon) 1 mg IM PRN PRN PRN Reason: Hypoglycemia Hydralazine HCl (Apresoline) 10 mg SLOW IVP Q4H PRN PRN Reason: Systolic BP > 180 Last Admin: 03/22/17 02:30 Dose: 10 mg Dextrose/Water (D5w) 1,000 mls @ 0 mls/hr IV .Q0M PRN; As Directed PRN Reason: Hypoglycemia Insulin Human Lispro (Humalog) 0 units SC .MODERATE SLIDING SC PRN PRN Reason: Moderate Correctional Scale Last Admin: 03/23/17 11:55 Dose: 4 unit Insulin Human Lispro (Humalog) 0 units SC .BEDTIME SLIDING SC PRN PRN Reason: Bedtime Correctional Scale Last Admin: 03/22/17 20:10 Dose: 2 unit Loperamide HCl (Imodium) 2 mg PO PRN PRN PRN Reason: Diarrhea/Loose Stools Multivitamins (Theragran) 1 tab PO DAILY [facility] Nortriptyline HCl (Pamelor) 25 mg PO HS [facility] Last Admin: 03/22/17 20:05 Dose: 25 mg Ondansetron HCl (Zofran Odt) 4 mg PO Q6H PRN PRN Reason: Nausea/Vomiting Ondansetron HCl (Zofran) 4 mg IVP Q6H PRN PRN Reason: Nausea/Vomiting Last Admin: 03/21/17 21:14 Dose: 4 mg Ondansetron HCl (Zofran Odt) 4 mg PO Q4HR PRN PRN Reason: Nausea/Vomiting Prednisone (Prednisone) 40 mg PO QAM-[facility] Last Admin: 03/23/17 08:43 Dose: 40 mg
--- NOTE | 2017-03-23 17:46 | PRG ---
DATE OF SERVICE: 03/23/2017 SUBJECTIVE: Mr. Swan is doing well, tolerating a solid diet. He has no abdominal pain. OBJECTIVE: VITAL SIGNS: Temperature 98.3, pulse 80, blood pressure 158/87. GENERAL: He is in no acute distress, alert and oriented x3. LUNGS: Clear to auscultation bilaterally. HEART: Regular rate and rhythm. ABDOMEN: Soft, nontender, nondistended. Bowel sounds are present. EXTREMITIES: No lower extremity edema. IMPRESSION: 1. Mild exacerbation of small bowel Crohn disease, improved with IV steroids, now changed to prednis one today. 2. Pancytopenia. This could possibly be due to the azathioprine. Last time, he was admitted, we ch ecked azathioprine metabolite level which was below the therapeutic range. He has been intermittentl y compliant with the medication. His blood counts are all lower today. I will discontinue the azath ioprine at this point and request Hematology consultation. I would check the azathioprine metabolite levels again today to assess if this is the likely source for his pancytopenia.
[2017-03-23] MEDS: Nortriptyline HCl 25 MG CAP PO SCH (20:54)
[2017-03-23] MEDS: ALPRAZolam 0.25 MG TAB PO PRN (20:55)
[2017-03-23] MEDS: cloNIDine 0.1 MG TAB PO PRN (20:55)
--- NOTE | 2017-03-24 00:40 | PRG ---
ADDENDUM: 03/23/[address] Brady with Hematology/Oncology. Mr. Swan has had pancytopenia over the last coup le of years; however, it did seem to worsen last November. He required blood transfusion at that time . His platelets have dropped further down in the 30,000 range then and now again today. He is not n eutropenic. He has been on azathioprine, but his metabolite levels were low previously. He has been on Humira, azathioprine and low grade lymphoma would be a consideration. Myelodysplastic syndrome i s possible. Dr. Brady believes he might end up needing a bone marrow biopsy to evaluate this furth er. Of note, on review of imaging, he has had an enlarged spleen up to 16 cm, which might also be th e source for his pancytopenia. He does not have a known history of cirrhosis of the liver. I will r eview his alcohol history with him in more detail. I will check viral hepatitis panel as well. His albumin is normal. His transaminases, alkaline phosphatase, and bilirubin are all normal. Certainly , there is nothing to point to decompensated cirrhosis. I will check INR as well. PLAN: We will check a CBC in the morning. If his blood counts are stabilized, then he can follow up with Dr. Brady and Babs Gates this coming week for further management and evaluation of the panc ytopenia. In the meantime, I will hold the azathioprine. Again, the patient is encouraged to keep f ollowup with Dr. Flores as well. He has not been back in to see Dr. Flores since he was in the hospital when I last saw him in November. If his blood counts are stable tomorrow, he can still discharge home tomorrow with close outpatient Hematology consultation.
[2017-03-24] MEDS: HumaLOG 300 UNITS/3 ML VIAL SC PRN (02:30)
[2017-03-24 05:19] LABS: Reticulocyte Count 1.8 % (0.5-1.5)
[2017-03-24 05:35] LABS: Iron 14 ug/dL (65-175); Iron Binding Capacity, Total 350 mcg/dL (261-462)
[2017-03-24 05:50] LABS: Ferritin 9.99 ng/mL (22-322); Thyroid Stimulating Hormone 1.9008 uIU/mL (0.35-4.94)
[2017-03-24 06:04] LABS: Folate (Folic Acid) 10.8 ng/mL (7.0-31.4); HBSAB Concentration 0.58 mIU/mL; HBSAg Index 0.21 S/CO (0-0.99); Hep B Core Total Ab Non-Reactive (NonReactive); Hep B Core Total Index 0.07 S/CO (0-0.79); Hep B Surf AB Non-Reactive (NonReactive); Hep B Surf Ag Non-Reactive S/CO (NonReactive); Hep C IgG Ab Non-Reactive (NonReactive); Hep C Index 0.12 S/CO (0-0.79)
[2017-03-24 06:06] LABS: Anisocytosis SLIGHT = 6-15 cells (100X) (0-5/hpf); Band 9 % (5-11); Elliptocytes SLIGHT = 2-5 cells (100X) (0-1/hpf); Hemoglobin 8.9 g/dL (14.0-18.0); Lymphocytes 16 % (21-51); MDiff Complete? YES; Mean Corpuscular HGB CONC 31.9 g/dL (32.0-36.0); Mean Corpuscular Volume 87.8 fl (80.0-94.0); Mean Platelet Volume 7.9 fL (7.4-10.4); Monocytes 5 % (0-10); Neutrophil 70 % (42-75); PLT Morphology Comment Appears Decreased; Platelet Count 38 thou/uL (130-400); RBC Distribution Width 19.3 % (11.5-14.5); Red Blood Cell (RBC) Count 3.16 mill/uL (4.70-6.10); Schistocytes SLIGHT = 2-5 cells (100X) (0-1/hpf); White Blood Cell (WBC) Count 1.4 thou/uL (4.8-10.8)
[2017-03-24] MEDS ORDERED: Glimepiride 4 MG TAB PO SCH (08:00)
[2017-03-24] MEDS ORDERED: Calcium Carbonate + Vit D 1 TAB PO SCH (08:00)
[2017-03-24] MEDS: predniSONE 20 MG TAB PO SCH (08:56)
[2017-03-24] MEDS: Famotidine 20 MG TAB PO SCH (08:56)
[2017-03-24] MEDS ORDERED: Folic Acid 1 MG TAB PO SCH (09:00)
[2017-03-24] MEDS ORDERED: Multivit, Therapeutic 1 TAB PO SCH (09:00)
[2017-03-24] MEDS ORDERED: Cyanocobalamin (Vitamin B-12) 1,000 MCG TAB PO SCH (09:00)
[2017-03-24] MEDS ORDERED: Iron Sucrose Complex 200 MG in Sodium Chloride 0.9% 250 ML 250 ML IVPB SCH (09:15)
[2017-03-24] MEDS ORDERED: Sodium Ferric Gluconate 250 MG in Sodium Chloride 0.9% 100 ML IVPB SCH (09:30)
[2017-03-24 11:51] VITALS: BP 171/72; TEMP 98
[2017-03-24 14:18] LABS: Ref Lab Test Ordered THIO METS; Reference Lab Name PROMETHEUS
--- NOTE | 2017-03-24 15:03 | PRG ---
DATE OF SERVICE: 03/24/2017 SUBJECTIVE: Mr. Swan has no complaints. He is tolerating his diet well. No abdominal pain. No bl ood in the stool. OBJECTIVE: VITAL SIGNS: Temperature 98.0, pulse 79, blood pressure 171/72. GENERAL: He is in no acute distress, alert and oriented x3. LUNGS: Clear to auscultation bilaterally. HEART: Regular rate and rhythm without murmur. ABDOMEN: Soft, nontender, nondistended, bowel sounds are present. EXTREMITIES: No lower extremity edema. IMPRESSION: 1. Mild exacerbation of small bowel Crohn's disease, improved with IV steroids. He has been changed to prednisone yesterday. He remains on Humira 80 mg every 2 weeks. He has been on azathioprine as an outpatient; however, his compliance has been intermittent with this. 2. Pancytopenia. His white blood cell count dropped further today to 1.4 with 70% neutrophils. His hemoglobin decreased to 8.9. He has a history of iron deficiency and has received IV iron infusions from Dr. Wyatt in the past. His ferritin is 10 consistent with iron deficiency. His platelet cou nts are stable today at 38,000. Azathioprine metabolite levels were checked yesterday to see if he i s in the toxic range with this. In the meantime, azathioprine is to be discontinued. RECOMMENDATIONS: 1. Discontinue azathioprine. 2. Prednisone taper 40 mg for a week, 30 mg for a week, 20 mg for a week, 10 mg for a week, 5 mg for a week, and then discontinue. 3. Follow up in the office with Dr. Flores in 2 to 4 weeks. 4. I spoke with Dr. Brady about his pancytopenia. She will help arrange follow up over the next c ouple of days in Hematology/Oncology Clinic. Consideration for myelodysplastic syndrome or lymphoma will be given. Again, this could be just side effect from azathioprine. 5. He received IV iron today written by the Hospitalist Service. 6. He will discharge home today.
--- NOTE | 2017-03-24 18:14 | DIS ---
DATE OF DISCHARGE: 03/24/2017 DISCHARGE DISPOSITION: Home. FOLLOWUP: 1. Follow up with primary care physician, Dr. Franc Perales in 1 week. 2. Follow up with Gastroenterology, Dr. Flores in 1 week. 3. Follow up with Dr. Brady for possible bone marrow biopsy next week. Patient was advised to nalini l the oncology clinic tomorrow. ALLERGIES: No known drug allergies. DISCHARGE MEDICATIONS: Prednisone 40 mg daily for 6 days, then 30 mg daily for 1 week and then 20 mg daily for 1 week, then 10 mg daily for 1 week, then 5 mg daily for 1 week, then discontinue. The patient was advised to discontinue azathioprine. Other home medications were resumed. The patient was advised to start ergocalciferol, folic acid, mu ltivitamin, and vitamin B12. The patient was seen and examined on the day of discharge. He denies any new complaints. No chest p ain, shortness of breath, palpitations. INPATIENT CONSULTANTS: Gastroenterology, Dr. Cartwright. BRIEF HOSPITAL COURSE: The patient is a 66-year-old white male with inflammatory bowel disease who p resented to the hospital with abdominal pain with nausea and vomiting. Please refer to the history a nd physical dated 03/21/2017 for further details. The patient was admitted to the hospital with a diagnosis of exacerbation of Crohn's disease. He was placed on Solu-Medrol and was seen by Gastroenterology. His pain was controlled with IV narcotics. He showed good improvement with steroids. The patient developed pancytopenia. His white blood cell counts dropped from 4.6-1.4, H&H dropped fr om 12.2 to 8.9 and platelet count dropped from 47-38. His reticulocyte was 1.8. His TSH and folic a brenda was normal. Vitamin B12 was 254. Due to iron deficiency, he received 200 mg of IV Venofer. His ferritin was 9.9 with iron of 14, TIBC 350. Azathioprine metabolite test has been sent and pending at this time. Hepatitis B and C testing were negative. His LFTs remained in normal range. He has b een cleared by Gastroenterology for discharge. Neutropenic precautions were emphasized. He was advi sed to discontinue azathioprine. Plan of care was discussed with the patient in detail and he stated understanding. FINAL DIAGNOSES: 1. Exacerbation of Crohn's disease. 2. Pancytopenia, probably medication induced. Rule out myelodysplastic syndrome. 3. Iron deficiency anemia. Patient received one dose of Venofer 200 mg. 4. Mild protein calorie malnutrition. 5. Low normal vitamin B12. 6. Diabetes mellitus type 2. 7. Anxiety disorder. 8. Polio as a child. 9. Coronary artery disease. Plan of care was discussed with the patient in detail. He stated understanding. Dr. Brady is fidelia [place]
[2017-03-25] MEDS ORDERED: Glimepiride 1 MG TAB PO SCH (08:00)
[2017-03-30] MEDS ORDERED: Ergocalciferol 1.25 MG(50,000 UNITS) CAP PO SCH (09:00)
== END 2017-03-24 15:05 | disposition home or self-care (01) | DRG 385 ==
LOC: ERS 11:46 → T4-A 16:00
PROVIDERS: ADMIT Family Medicine; ATTEND Family Medicine
DX: K50.00 Crohn's disease of small intestine without complications (principal); D61.811 Other drug-induced pancytopenia; E44.1 Mild protein-calorie malnutrition; D50.9 Iron deficiency anemia, unspecified; E87.1 Hypo-osmolality and hyponatremia; E11.9 Type 2 diabetes mellitus without complications; I10 Essential (primary) hypertension; F41.9 Anxiety disorder, unspecified; E55.9 Vitamin D deficiency, unspecified; I25.10 Atherosclerotic heart disease of native coronary artery without angina pectoris; Z86.12 Personal history of poliomyelitis; T45.1X5A Adverse effect of antineoplastic and immunosuppressive drugs, initial encounter; Z68.24 Body mass index [BMI] 24.0-24.9, adult
CPT/HCPCS: 36415; 36416; 80053; 82607; 82728; 82746; 83540; 83550; 84443; 85007; 85025; 85027; 85046; 85060; 86704; 86706; 86708; 86803; 87340; 96361; 96374; 96375; J0360; J2270; J2405; J2916; J2920; J2930; J7050; J7500; J7506

== ENCOUNTER 2018-08-28 15:58 | Inpatient (IN) | payer MEDICARE ==
[~2018-08-28 15:58] MED LIST: ISOVUE-370 76%-LOCM 1 ML ONE
[2018-08-28 16:47] LABS: #Lymphocytes 0.4 thou/uL (1.20-3.40); #Monocytes 0.3 thou/uL (0.11-0.59); #Neutrophils 2.8 thou/uL (1.40-6.50); %Basophils 0.6 % (0.0-1.0); %Eosinophils 0.5 % (0.0-10.0); %Lymphocytes 10.7 % (21.0-51.0); %Monocytes 7.3 % (0.0-10.0); %Neutrophils 80.9 % (42.0-75.0); Hemoglobin 12.7 g/dL (14.0-18.0); Mean Corpuscular HGB CONC 31.9 g/dL (32.0-36.0); Mean Corpuscular Hemoglobin 27.8 pg (27.0-31.0); Mean Platelet Volume 9.6 fL (7.4-10.4); Platelet Count 92 thou/uL (130-400); RBC Distribution Width 15.9 % (11.5-14.5); Red Blood Cell (RBC) Count 4.56 mill/uL (4.70-6.10); White Blood Cell (WBC) Count 3.4 thou/uL (4.8-10.8)
[2018-08-28 16:50] LABS: Bilirubin Small (Negative); Blood, Urine Trace (Negative); Glucose, Urine (Dipstick) 100 mg/dL (Negative); Leukocyte Negative (Negative); Nitrite Negative (Negative); Protein, Urine (Dipstick) Negative (Neg-Trace)
[2018-08-28 16:52] LABS: Clarity Clear (Clear)
[2018-08-28 17:00] LABS: Bacteria/HPF None Seen HPF (None Seen); RBC/HPF 0-3 HPF (0-3); Squamous Epithelial 0-3 HPF (0-3); WBC/HPF 0-3 HPF (0-3)
[2018-08-28 17:09] LABS: ALT (SGPT) 138 U/L (8-55); AST (SGOT) 245 U/L (5-34); Albumin 3.8 g/dL (3.4-4.8); Alkaline Phosphatase 229 U/L (40-150); Anion Gap 9 mmol/L (10-20); BUN (Urea Nitrogen) 14 mg/dL (8.4-25.7); Bilirubin, Total 0.4 mg/dL (0.2-1.2); Calc. Creatinine Clearance 0 mL/min (70-130); Calcium 9.2 mg/dL (7.8-10.44); Carbon Dioxide 29 mmol/L (23-31); Chloride 103 mmol/L (98-107); Estimated GFR-MDRD Greater than 90; Globulin 2.8 g/dL (2.4-3.5); Glucose 142 mg/dL (80-115); Lipase 68 U/L (8-78); Protein, Total 6.6 g/dL (5.8-8.1); Sodium 137 mmol/L (136-145)
[2018-08-28] MEDS ORDERED: Morphine 4 MG/ML VIAL ONE (20:04)
[2018-08-28] MEDS ORDERED: methylPREDNISolone Sod Succ/PF 125 MG/2 ML VIAL ONE (20:05)
[2018-08-28] MEDS ORDERED: Ondansetron PF 4 MG/2 ML Vial ONE (20:05)
--- NOTE | 2018-08-28 21:04 | CT ---
CT ABDOMEN AND PELVIS WITH IV CONTRAST: 08/28/18 HISTORY: Abdominal pain, Crohn's disease. COMPARISON: 12/09/16. FINDINGS: The lung bases are clear. The patient is post cholecystectomy. Splenomegaly. 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 L iver, pancreas, adrenal gland and kidneys are otherwise unremarkable. There is a small amount of free fluid in the pelvis. No free air or lymphadenopathy seen. There are dilated small bowel loops with transition in the mid ileum. There is colonic diverticulosis . There are vascular calcifications without evidence of aneurysmal dilatation of the abdominal aorta. There are postop changes in the lumbar spine. IMPRESSION: Findings are consistent with small bowel obstruction. POS: [facility]
[2018-08-28] MEDS ORDERED: Morphine 2 MG/ML SYRINGE ONE (22:43)
[2018-08-28] MEDS ORDERED: Ondansetron PF 4 MG/2 ML Vial IVP PRN (23:44)
[2018-08-28] MEDS ORDERED: Acetaminophen 325 MG TAB PO PRN (23:44)
[2018-08-28] MEDS ORDERED: Ondansetron ODT 4 MG TAB SL PRN (23:44)
[2018-08-28] MEDS ORDERED: Morphine 2 MG/ML SYRINGE SLOW IVP PRN (23:45)
[2018-08-29 00:06] VITALS: BMI 24.2
[2018-08-29] MEDS ORDERED: Ondansetron PF 4 MG/2 ML Vial IVP PRN (00:13)
[2018-08-29] MEDS ORDERED: Ondansetron ODT 4 MG TAB PO PRN (00:13)
[2018-08-29] MEDS: Sodium Chloride 0.9% 1,000 ML IV SCH ×4 (00:30→21:25)
[2018-08-29] MEDS ORDERED: HumaLOG 300 UNITS/3 ML VIAL SC PRN (00:33)
[2018-08-29] MEDS ORDERED: Dextrose 5% in Water 1,000 ML IV PRN (00:33)
[2018-08-29] MEDS ORDERED: Dextrose 50% Abboject 50 ML SYRINGE SLOW IVP PRN (00:33)
[2018-08-29] MEDS ORDERED: ALPRAZolam 1 MG TAB PO PRN (00:43)
[2018-08-29 04:45] LABS: #Lymphocytes 0.2 thou/uL (1.20-3.40); #Monocytes 0.1 thou/uL (0.11-0.59); #Neutrophils 2.1 thou/uL (1.40-6.50); %Eosinophils 0.6 % (0.0-10.0); %Lymphocytes 7.3 % (21.0-51.0); %Monocytes 3.4 % (0.0-10.0); %Neutrophils 88.6 % (42.0-75.0); Hemoglobin 11.9 g/dL (14.0-18.0); Mean Corpuscular HGB CONC 31.9 g/dL (32.0-36.0); Mean Corpuscular Hemoglobin 28.1 pg (27.0-31.0); Mean Corpuscular Volume 87.9 fL (78.0-98.0); Platelet Count 78 thou/uL (130-400); RBC Distribution Width 15.4 % (11.5-14.5); Red Blood Cell (RBC) Count 4.24 mill/uL (4.70-6.10); White Blood Cell (WBC) Count 2.3 thou/uL (4.8-10.8)
--- NOTE | 2018-08-29 04:53 | HP ---
CHIEF COMPLAINT: Abdominal pain. HISTORY OF PRESENT ILLNESS: This patient is a 68-year-old male with a history of Crohn disease and a history of multiple prior small bowel obstructions. The patient is followed by Dr. Flores. The patient reported that he has had about 8 days of abdominal pain, feeling like Crohn's attack, having pain primarily in the right lower quadrant area which is where he says he has had pain in the past. He states the pain has been sharp and intermittent, increased from 5/10 a few days ago to 8/10. He has been taking some [id number] Tylenol at home, but it did not help and took Tylenol No. 4 and it did not help. He seemed to get worse after eating or exerting himself. He also reports that he has had some "coffee-ground" like stools, which is fairly normal for him. REVIEW OF SYSTEMS: Has no fevers or chills. Does have nausea. No vomiting. Denies any chest pain, shortness of breath, headaches. 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 All other systems were reviewed and all pertinent positives and negatives noted in the history of present illness. PAST MEDICAL HISTORY: Notable for post-polio syndrome, Crohn disease, what he describes as borderline diabetes, although he is on medications for it. Of note, the patient does have a history of elevated blood pressures with his previous admissions, but has not been diagnosed with hypertension nor does he take antihypertensives. PSYCH HISTORY: Patient reports anxiety, although he has never been formally diagnosed. PAST SURGICAL HISTORY: Cholecystectomy, skin cancer removal, back surgery, C-spine surgery, tendon transplant, right Achilles. FAMILY HISTORY: Notable for mother had a stroke. Father had diabetes and CHF. SOCIAL HISTORY: The patient is a nondrinker, nonsmoker, although he does smoke one cigar every 6 months. He is a nondrug user generally, but he does admit to occasionally using marijuana to try to help with his pain symptoms. 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 ALLERGIES: NONE. CURRENT MEDICATIONS: 1. Zofran ODT p.r.n. 2. Dicyclomine 10 mg b.i.d. 3. Azathioprine 100 mg daily. 4. Glimepiride 2 mg daily. 5. Metformin 500 mg daily. 6. Alprazolam 0.5 mg 3 p.o. t.i.d. 7. Humira 40 mg subcu weekly. 8. Carbamazepine 100 mg two daily. 9. Tizanidine 4 mg b.i.d. PHYSICAL EXAMINATION: VITAL SIGNS: BP 158/92, pulse 79, respirations 18, O2 saturation 96% on room air. GENERAL APPEARANCE: Age-appropriate male, in no distress. Awake, alert, oriented, very pleasant, and cooperative. HEENT: PERRL. No OP lesions. NECK: Supple and symmetric with no lymphadenopathy, JVD, or carotid bruits. HEART: Regular rate and rhythm without murmurs, gallops, or rubs. LUNGS: Clear to auscultation bilaterally with good chest wall expansion and air exchange. ABDOMEN: Soft, nontender, and nondistended. Positive bowel sounds. No masses. No organomegaly. EXTREMITIES: No cyanosis, clubbing, or edema. LABORATORY DATA: White count 3.4, hemoglobin 12.7, platelets 92. Sodium 137, potassium 4.0, chloride 103, CO2 of 29, BUN 14, creatinine 0.67, glucose 142. Total bilirubin 0.4, AST is 245, ALT is 138, alkaline phosphatase 229, and lipase 68. Urinalysis; trace ketones, trace blood, small bilirubin. CT abdomen is consistent with a small bowel obstruction with transition point at the mid ileus. Liver actually appears normal on the CT. IMPRESSION AND PLAN: 1. Apparent small bowel obstruction in a patient with a history of Crohn's and history of prior small bowel obstructions, presenting very similarly. The patient has not required surgery for these in the past as they have typically resolved. His exam is actually fairly benign. His abdomen is soft. He does not have high-pitched bowel sounds and he is not distended. He has no vomiting. We will keep him n.p.o., keep him on some IV fluids, p.r.n. pain medications, and ask GI to see him in the morning. 2. Crohn disease, possibly it could be having a bit of flare, although that could be resulting in some stricture, some occlusion of the bowel causing appearance of the bowel obstruction. We will defer any more aggressive treatment to GI. 3. Elevated liver enzymes. These are new for the patient. He has not had these in the past. He is not tender around the liver and he has no gallbladder. We will recheck these in the morning, holding his medicines until we can evaluate repeat labs in the morning. 4. Diabetes mellitus. Holding his glimepiride and metformin. We will perform Accu-Cheks and a sliding scale. 5. Pancytopenia, chronic since the patient has been on the azathioprine consistent with his prior labs. 6. Elevated blood pressure consistent with hypertension as it has been elevated over his previous hospitalizations. We will provide some p.r.n. hydralazine for now. May need to be started on a daily medication once he is back taking p.o. 7. History of post-polio syndrome. The patient does have pain medicines available to him. 8. Self-described anxiety. We will continue some benzodiazepines for him in the short term. Job ID: [id number]
[2018-08-29 05:06] LABS: ALT (SGPT) 114 U/L (8-55); AST (SGOT) 85 U/L (5-34); Albumin 3.4 g/dL (3.4-4.8); Alkaline Phosphatase 208 U/L (40-150); Anion Gap 11 mmol/L (10-20); BUN (Urea Nitrogen) 15 mg/dL (8.4-25.7); Bilirubin, Total 0.4 mg/dL (0.2-1.2); Calc. Creatinine Clearance 105 mL/min (70-130); Calcium 9.2 mg/dL (7.8-10.44); Carbon Dioxide 27 mmol/L (23-31); Chloride 102 mmol/L (98-107); Estimated GFR-MDRD Greater than 90; Globulin 2.5 g/dL (2.4-3.5); Glucose 178 mg/dL (80-115); Potassium 4.5 mmol/L (3.5-5.1); Protein, Total 5.9 g/dL (5.8-8.1); Sodium 135 mmol/L (136-145)
[2018-08-29] MEDS ORDERED: Prevnar 13-Val Conj/PF 0.5 ML SYRINGE IM ONE (09:00)
--- NOTE | 2018-08-29 16:41 | CON ---
DATE OF CONSULTATION: 08/29/2018 REQUESTING PHYSICIAN: Dr. Myers. REASON FOR CONSULTATION: Crohn disease with small bowel obstruction. HISTORY OF PRESENT ILLNESS: Wilberto Swan is a very pleasant 68-year-old man with Crohn disease of the small bowel, followed in the GI outpatient setting by my colleague, Dr. Uriel Flores. Crohn disease is diagnosed on the basis of capsule endoscopy in 2007, evidently with small bowel involvement only. Mr. Swan has had several hospitalizations through the years with recurrent, but quite transient small-bowel obstructions, which usually resolved with conservative management. He is receiving Humira 40 mg subcutaneously weekly, and has also been recently treated with azathioprine. Dr. Flores has been reducing his dose in recent months due to pancytopenia and he is now down to 50 mg daily. He says that for about the past week, he has been having worsening intermittent sharp pain primarily in the right lower quadrant associated with some nausea, but no vomiting. He has continued to have bowel movements and pass gas. The pain escalated yesterday and it prompted his presentation. CT scan showed a dilated loops of small bowel with transition in the mid ileum consistent with small-bowel obstruction. He is also noted to have splenomegaly. Laboratory studies were significant for stable pancytopenia, but also it appears new elevation in transaminases with AST 85, ALT 114, and alkaline phosphatase 208. The patient has no known prior history of liver disease. He does not drink alcohol. The patient was made n.p.o. last night. He says that today he is feeling really well. His abdominal pain is minimal. No more nausea. There has been no vomiting. He has had 3 soft bowel movements so far today. He has been afebrile and hemodynamically stable. REVIEW OF SYSTEMS: Full review of systems including constitutional, head, eyes, ears, nose, throat, GI, , cardiovascular, respiratory, musculoskeletal, neurologic systems is negative except as noted in the HPI. PAST MEDICAL HISTORY: 1. Crohn disease of the small bowel. 2. Multiple transient small bowel obstructions. 3. Diabetes. 4. Post-polio syndrome. 5. Anxiety. 6. Cholecystectomy. 7. Back surgery. 8. Pancytopenia, secondary to azathioprine. ALLERGIES: NO KNOWN DRUG ALLERGIES. OUTPATIENT MEDICATIONS: 1. Zofran. 2. Dicyclomine. 3. Azathioprine 50 mg daily. 4. Humira 40 mg subcutaneously weekly. 5. Glimepiride. 6. Metformin. 7. Xanax. 8. Carbamazepine. 9. Tizanidine. FAMILY HISTORY: Mother had CVA. SOCIAL HISTORY: Cigar use is rare. Marijuana use is rare. No alcohol use. PHYSICAL EXAMINATION: VITAL SIGNS: Temperature 98.0, pulse 82, blood pressure 147/78, and 98% oxygen saturation on room air. GENERAL: Well-appearing 68-year-old man, standing up in the room comfortably, in no distress. SKIN: No jaundice. No rashes were palpable. EYES: No scleral icterus. Extraocular movements intact. ENT: Mucous membranes moist. No oral lesions. LYMPH: No submandibular or supraclavicular lymphadenopathy. THYROID: Nontender to palpation. HEART: Regular rate and rhythm. LUNGS: Clear to auscultation bilaterally. ABDOMEN: Mild distention, tympanitic to percussion. Bowel sounds are present. Bit hyperactive in the lower abdomen. The abdomen is soft, some tenderness to palpation in the lower abdomen. No guarding or rebound tenderness. EXTREMITIES: No peripheral edema. VESSELS: Radial pulses 2+ bilaterally. NEUROLOGIC: Cranial nerves 2 through 12 intact bilaterally. No focal deficits. LABORATORY STUDIES: WBC 2.3, hemoglobin 11.9, and platelets 78. Sodium 135, potassium 4.5, BUN 15, creatinine 0.68, lipase 68, total bilirubin 0.4, alkaline phosphatase 208, AST 85, ALT 114. Lipase 68. IMAGING STUDIES: CT of the abdomen and pelvis from yesterday showed dilated loops of small bowel with transition point in the mid ileum consistent with small-bowel obstruction. He has post-cholecystectomy. There is also splenomegaly, which is stable from prior exam. ASSESSMENT AND PLAN: 1. Small bowel obstruction, ileum. 2. Crohn disease of the small bowel. The patient's symptoms have significantly improved with n.p.o. status today. Prior presentations have been quite transient. I encouraged the patient to stick with a low residue diet on an outpatient basis. For now, we will try advancing to a clear liquid diet. Hopefully, his diet will be able to advance as tolerated quickly. If he is tolerating liquids tomorrow morning, could advance to more solid diet. If he tolerates this, hopefully will be able to be discharged tomorrow. 3. Dr. Flores has been recently weaning down his azathioprine due to pancytopenia. Particularly given this new elevation in LFTs, I would recommend simply stopping the azathioprine completely for now and continuing on Humira. If the patient is doing well tomorrow, we may be able to avoid another steroid taper. 4. Elevated LFTs. This is essentially new. Note, LFTs were nearly normal in July, which is a mild alkaline phosphatase elevation at that time. The reason for this is unclear. I would completely hold the azathioprine. We will also order some liver laboratory workup to be performed with morning labs. He can follow this up with Dr. Flores on an outpatient basis. There is no evidence of liver failure dysfunction. Job ID: [id number]
[2018-08-29] MEDS ORDERED: ALPRAZolam 0.25 MG TAB PO PRN (20:20)
[2018-08-29] MEDS: hydrALAZINE 20 MG/ML VIAL SLOW IVP PRN (20:21)
[2018-08-29] MEDS ORDERED: Dicyclomine 10 MG CAP PO PRN (20:22)
--- NOTE | 2018-08-29 20:48 | PRG ---
DATE OF SERVICE: 08/29/2018 SUBJECTIVE: A 68-year-old male with Crohn's disease and multiple small bowel obstructions in the past, presented to the hospital with abdominal pain. CT scan of the abdomen and pelvis in the emergency room was consistent with small bowel obstruction with transition in the mid ileum. He was kept n.p.o. Earlier today, he had 4 bowel movements. Abdominal pain has significantly improved. He denies any nausea or vomiting. He was started on clear liquid diet this afternoon, which he tolerated well. He denies any fever or chills. REVIEW OF SYSTEMS: All other review of systems was reviewed and were found negative. CURRENT MEDICATIONS: Reviewed. The patient is on Xanax, IV fluids as well as insulin sliding scale. CT scan of the abdomen by my review as discussed as above. PHYSICAL EXAMINATION: GENERAL: A 68-year-old male, in no apparent distress. VITAL SIGNS: Temperature 98.1, pulse of 87, respirations 18, blood pressure of 147/78, and O2 saturation 98% on room air. Intake of 1530, output unavailable. LUNGS: Clear to auscultation bilaterally. No wheezing, rales, or rhonchi. HEART: S1 and S2 present. Regular rate and rhythm. ABDOMEN: Soft. Bowel sounds present. No rebound or guarding. No costovertebral angle tenderness. EXTREMITIES: No edema or calf tenderness. LABORATORY FINDINGS: WBC 2.3 with hemoglobin 11.9, and platelets 78. Chemistry showed sodium 135, potassium 4.5 with AST of 85, ALT 114, alkaline phosphorus 208. Lipase was normal. Urinalysis was negative for WBC bacteria. IMPRESSION: 1. Small bowel obstruction. 2. History of Crohn's disease of small bowel. 3. Abnormal LFTs with pancytopenia suspected to be secondary to azathioprine. 4. Anxiety. 5. Post-polio syndrome. 6. Diabetes mellitus type 2. 7. Hypertension. 8. Dehydration. 9. Hyponatremia. PLAN: We will reduce IV fluid to 75 mL an hour. We will resume his home medications including Bentyl, glimepiride, Xanax, carbamazepine, and Zanaflex. We will recheck labs in a.m. The patient was advised to ambulate in the hallway. GI input appreciated. He will undergo lab testing for abnormal LFTs in a.m. Plan was discussed with the patient in detail, he stated understanding. Job ID: [id number]
[2018-08-30] MEDS: hydrALAZINE 20 MG/ML VIAL SLOW IVP PRN (04:38)
[2018-08-30 05:21] LABS: #Lymphocytes 0.4 thou/uL (1.20-3.40); #Monocytes 0.2 thou/uL (0.11-0.59); #Neutrophils 2.1 thou/uL (1.40-6.50); %Basophils 0.4 % (0.0-1.0); %Eosinophils 1.2 % (0.0-10.0); %Lymphocytes 15.7 % (21.0-51.0); %Monocytes 8.5 % (0.0-10.0); %Neutrophils 74.1 % (42.0-75.0); Hemoglobin 11.7 g/dL (14.0-18.0); Mean Corpuscular HGB CONC 31.9 g/dL (32.0-36.0); Mean Corpuscular Volume 87.9 fL (78.0-98.0); Mean Platelet Volume 9.6 fL (7.4-10.4); Platelet Count 82 thou/uL (130-400); RBC Distribution Width 15.6 % (11.5-14.5); Red Blood Cell (RBC) Count 4.16 mill/uL (4.70-6.10); White Blood Cell (WBC) Count 2.8 thou/uL (4.8-10.8)
[2018-08-30 05:24] LABS: INR-International Normal Ratio 1.2; Prothrombin Time 15.3 SEC (12.0-14.7)
[2018-08-30 05:43] LABS: ALT (SGPT) 76 U/L (8-55); AST (SGOT) 43 U/L (5-34); Acetaminophen Less than 6.0 mcg/mL (10.0-30.0); Albumin 3.4 g/dL (3.4-4.8); Alkaline Phosphatase 167 U/L (40-150); Anion Gap 9 mmol/L (10-20); BUN (Urea Nitrogen) 12 mg/dL (8.4-25.7); Bilirubin, Total 0.5 mg/dL (0.2-1.2); Calc. Creatinine Clearance 106 mL/min (70-130); Calcium 9.2 mg/dL (7.8-10.44); Carbon Dioxide 27 mmol/L (23-31); Chloride 107 mmol/L (98-107); Estimated GFR-MDRD Greater than 90; Globulin 2.5 g/dL (2.4-3.5); Glucose 129 mg/dL (80-115); Iron 44 ug/dL (65-175); Iron Binding Capacity, Total 291 mcg/dL (261-462); Magnesium 1.7 mg/dL (1.6-2.6); Potassium 3.9 mmol/L (3.5-5.1); Protein, Total 5.9 g/dL (5.8-8.1); Sodium 139 mmol/L (136-145)
[2018-08-30 06:14] LABS: HBCM Index 0.05 S/CO (0-0.79); HBSAg Index 0.28 S/CO (0-0.99); Hep A IgM AB Non-Reactive (NonReactive); Hep A IgM S/CO 0.13 S/CO (0-0.79); Hep B Surf Ag Non-Reactive S/CO (NonReactive); Hep C IgG Ab Non-Reactive (NonReactive); Hep C Index 0.09 S/CO (0-0.79); Hepatitis B Core IgM Abs Non-Reactive (NonReactive)
[2018-08-30] MEDS ORDERED: Glimepiride 1 MG TAB PO SCH (08:00)
[2018-08-30] MEDS ORDERED: carBAMazepine 100 mg Chewable Tablet PO SCH (09:00)
[2018-08-30] MEDS: Sodium Chloride 0.9% 1,000 ML IV SCH (09:48)
--- NOTE | 2018-08-30 13:13 | PRG ---
DATE OF SERVICE: 08/30/2018 SUBJECTIVE: Mr. Swan is feeling really well. He has not had any recurrence of abdominal pain or nausea. He is tolerating his liquid diet. He has continued to pass gas. He is eager to advance his diet. PHYSICAL EXAMINATION: VITAL SIGNS: Temperature 97.5, pulse 75, blood pressure 180/75, 100% oxygen saturation on room air. GENERAL: No acute distress. HEART: Regular rate and rhythm. LUNGS: Clear to auscultation bilaterally. ABDOMEN: Bowel sounds present. Soft and nontender to palpation. EXTREMITIES: No peripheral edema. LABORATORY DATA: WBC 2.8, hemoglobin 11.7, platelets 82. INR 1.2. Sodium 139, potassium 3.9, BUN 12, creatinine 0.67, glucose 100. LFTs have improved marginally with total bilirubin 0.5, alkaline phosphatase 167, AST 43, ALT 76, ferritin is normal at 110, iron 44, TIBC 291, acetaminophen level is less than 6, total IgG is normal at 842. Viral hepatitis serologies are all negative. Autoimmune markers pending. ASSESSMENT AND PLAN: 1. Small bowel obstruction, ileum, now appears to be resolved. 2. Crohn disease of the small bowel. Clinically, the patient's symptoms have resolved and he is tolerating a clear liquid diet. We will advance him to a regular diet today. If he does well with this for lunch, I think he could be discharged home from the hospital this afternoon or evening. LFTs have declined marginally since admission, etiology still not clear. I do recommend completely holding the azathioprine at this point, given his issues with pancytopenia and now this new LFT elevation. Liver laboratory workup back so far is unrevealing. Autoimmune markers are still pending. We will have the patient to follow up in the GI Clinic with Dr. Flores or his physician assistant press operator in the next couple of weeks, recheck LFTs, and perform any further workup as appropriate. Please call back anytime with questions or concerns. Job ID: [id number]
[2018-08-30 16:19] VITALS: BP 181/80; TEMP 97.9
--- NOTE | 2018-08-30 21:47 | DIS ---
DATE OF ADMISSION: 08/28/2018 DATE OF DISCHARGE: 08/30/2018 CONSULTANTS: Dr. Marinelli of Gastroenterology. MEDICATIONS: Reconciled at discharge. Discontinued medication is azathioprine, this was discontinued due to pancytopenia. No new medications. Medications to resume: 1. Xanax 0.75 mg at bedtime. 2. Dicyclomine 20 mg t.i.d. p.r.n. 3. Amaryl 2 mg daily. 4. Zofran ODT 4 mg q.4 hours p.r.n. 5. Metformin 500 mg b.i.d. Medications to continue, Humira 40 mg subcutaneous weekly. FINAL DIAGNOSES: 1. Small bowel obstruction secondary to Crohn disease with flare. 2. History of Crohn disease. 3. Abnormal LFTs with pancytopenia, suspect azathioprine is the source. 4. Elevated blood pressures - needs outpatient evaluation. SECONDARY DIAGNOSES: 1. Anxiety. 2. Post-polio syndrome. 3. Diabetes mellitus type 2. 4. Skin cancer status post removal. 5. Diverticulosis. HISTORY OF PRESENT ILLNESS: Mr. Swan is a 68-year-old male with Crohn disease and history of multiple small-bowel obstructions, who presented to the emergency room with a complaint of abdominal pain, as well as some coffee-ground like stools. Please see history and physical for details. HOSPITAL COURSE: The patient was started on IV fluids, kept n.p.o., with improvement of his symptoms. As his pain decreased, he was transitioned to a liquid diet and has been tolerating that well. This morning, he is completely asymptomatic, and states that this is consistent with prior small bowel obstructions. He has been tolerating a liquid diet, changed over to regular diet for lunch with anticipation of discharge to home if he tolerates this well. The patient noted to have elevated LFTs as well as a pancytopenia. He was evaluated by Gastroenterology with recommendation to stop the azathioprine for now. The patient will continue on his weekly Humira injections. The patient is overall doing well, ambulating without difficulty and meets criteria for discharge. Of note, his blood pressures have been elevated here in the 160s to 180 is the highest, he is completely asymptomatic from this. Medication was not initiated. The patient is directed to follow up with his primary care provider early next week to have this addressed. PHYSICAL EXAMINATION: VITAL SIGNS: On day of discharge, his blood pressure 180/75, pulse 75, temperature 97.5, respirations 18, sats 100% on room air. GENERAL: Awake, alert, responsive, in no apparent distress. Able to speak in full sentences. LUNGS: Clear to auscultation bilateral. HEART: Normal S1 and S2. Regular rate and rhythm. No audible murmurs. ABDOMEN: Soft with present bowel sounds. Nontender. Nondistended. EXTREMITIES: No pitting edema. LESTER FINDINGS AND TEST RESULTS: CBC: 2.8, 11.7, 36.6, 82. Renal panel; 139, 3.9, 107, 27, 12, 0.67, 129. Calcium 9.2. Magnesium 1.7. Iron 44, TIBC 291, ferritin 110. AST 43, ALT 76, alkaline phosphatase 167, total protein 5.9, albumin 3.4. Hepatitis panel is nonreactive. Tylenol level was less than 6. Urinalysis showed trace ketones, trace blood, small bilirubin. Abdomen and pelvis CT showed findings consistent with a small bowel obstruction, dilated small bowel loops with transition in the mid ileum, colonic diverticulosis. DIET: Heart healthy, low residue. ACTIVITY: As tolerated. FOLLOWUP: 1. Follow up with Dr. Flores within a few weeks for re-evaluation of Crohn disease and azathioprine which was stopped here. 2. Follow up with the primary care provider recommended for early next week to address blood pressure. CODE STATUS: Full. DISCHARGE DISPOSITION: Home. Reviewed the plan of care with the patient. No questions or further needs at the end of evaluation. He demonstrates understanding including the seek care precautions. TIME SPENT: Total time coordinating discharge is 35 minutes. Job ID: [id number] [facility]
[2018-09-02 10:43] LABS: ANA Symphony (Qualitative) Negative (Negative); ANA Symphony (Quantitative) 0.3 Ratio (< 0.7 Negative); EliA Vaculitis New Method **** NEW METHOD ****; Mitochondrial Ab 2.3 U/mL (<4 Negative)
== END 2018-08-30 17:00 | disposition home or self-care (01) | DRG 388 ==
LOC: ERS 15:58 → SURG A 23:31
PROVIDERS: ADMIT Internal Medicine; ATTEND Internal Medicine
DX: K56.609 Unspecified intestinal obstruction, unspecified as to partial versus complete obstruction (principal); D61.811 Other drug-induced pancytopenia; K50.90 Crohn's disease, unspecified, without complications; E87.1 Hypo-osmolality and hyponatremia; F41.9 Anxiety disorder, unspecified; F17.290 Nicotine dependence, other tobacco product, uncomplicated; E11.9 Type 2 diabetes mellitus without complications; I10 Essential (primary) hypertension; R79.89 Other specified abnormal findings of blood chemistry; E86.0 Dehydration; T45.1X5A Adverse effect of antineoplastic and immunosuppressive drugs, initial encounter; C44.90 Unspecified malignant neoplasm of skin, unspecified; K57.90 Diverticulosis of intestine, part unspecified, without perforation or abscess without bleeding
CPT/HCPCS: 36415; 36416; 74177; 80053; 80074; 80307; 81003; 81015; 82728; 83516; 83540; 83550; 83690; 83735; 85025; 85610; 86038; 86225; 96374; 96375; 96376; J0360; J2270; J2405; J2930; Q0162

== ENCOUNTER 2020-08-11 10:47 | Emergency (ER) | payer MEDICARE, OTHER ==
[2020-08-11 11:43] LABS: #Lymphocytes 0.4 thou/uL (1.20-3.40); #Monocytes 0.3 thou/uL (0.11-0.59); #Neutrophils 8.8 thou/uL (1.40-6.50); %Basophils 0.1 % (0.0-1.0); %Eosinophils 0.2 % (0.0-10.0); %Lymphocytes 4.5 % (21.0-51.0); %Monocytes 3.3 % (0.0-10.0); Hemoglobin 12.5 g/dL (14.0-18.0); Mean Corpuscular HGB CONC 30.1 g/dL (32.0-36.0); Mean Corpuscular Hemoglobin 21.6 pg (27.0-31.0); Mean Corpuscular Volume 71.8 fL (78.0-98.0); Mean Platelet Volume 8.1 fL (7.4-10.4); Platelet Count 64 thou/uL (130-400); RBC Distribution Width 15.5 % (11.5-14.5); Red Blood Cell (RBC) Count 5.77 mill/uL (4.70-6.10); White Blood Cell (WBC) Count 9.5 thou/uL (4.8-10.8)
[2020-08-11] MEDS ORDERED: Morphine 4 MG/ML VIAL ONE (11:52)
[2020-08-11] MEDS ORDERED: Ondansetron PF 4 MG/2 ML Vial ONE (11:52)
[2020-08-11] MEDS ORDERED: methylPREDNISolone Sod Succ 40 MG VIAL ONE (12:05)
[2020-08-11 12:07] LABS: Hypochromia SLIGHT = 6-15 cells (100X) (0-5/hpf); MDiff Complete? YES; Microcytosis SLIGHT = 6-15 cells (100X) (0-5/hpf); Ovalocytes SLIGHT = 2-5 cells (100X) (0-1/hpf); Platelet Morphology Comment Appears Decreased; Polychromasia SLIGHT = 2-3 cells (100X) (0-2/hpf)
[2020-08-11 12:26] LABS: ALT (SGPT) 20 U/L (8-55); AST (SGOT) 20 U/L (5-34); Albumin 4.3 g/dL (3.4-4.8); Alkaline Phosphatase 97 U/L (40-110); Anion Gap 15 mmol/L (10-20); BUN (Urea Nitrogen) 9 mg/dL (8.4-25.7); Bilirubin, Total 1.2 mg/dL (0.2-1.2); Calc. Creatinine Clearance 0 mL/min (70-130); Calcium 9.2 mg/dL (7.8-10.44); Carbon Dioxide 24 mmol/L (23-31); Chloride 97 mmol/L (98-107); Globulin 3.2 g/dL (2.4-3.5); Glucose 218 mg/dL (83-110); Lipase 14 U/L (8-78); Potassium 3.8 mmol/L (3.5-5.1); Protein, Total 7.5 g/dL (5.8-8.1); Sodium 132 mmol/L (136-145)
[2020-08-11 12:45] LABS: Bacteria/HPF None Seen HPF (None Seen); Bilirubin Negative (Negative); Blood, Urine Negative (Negative); Clarity Clear (Clear); Glucose, Urine (Dipstick) Greater than 1000 mg/dL (Negative); Ketone, Urine 60 mg/dL (Negative); Leukocyte Negative Leu/uL (Negative); Nitrite Negative (Negative); Protein, Urine (Dipstick) 30 mg/dL (Neg-Trace); RBC/HPF 0-3 HPF (0-3); Specific Gravity, Urine 1.016 (1.002-1.036); Squamous Epithelial None Seen HPF (0-3); Urobilinogen Normal mg/dL (Less than 2); WBC/HPF 0-3 HPF (0-3)
== END 2020-08-11 14:25 | disposition home or self-care (01) ==
LOC: ERS 10:47
DX: K50.90 Crohn's disease, unspecified, without complications (principal); D64.9 Anemia, unspecified; I10 Essential (primary) hypertension; E11.9 Type 2 diabetes mellitus without complications
CPT/HCPCS: 80053; 81003; 81015; 83605; 83690; 85025; 86140; 94760; 96374; 96375; J2270; J2405; J2920

== ENCOUNTER 2021-06-14 10:53 | Inpatient (IN) | payer MEDICARE ==
[~2021-06-14 10:53] MED LIST changes: -ISOVUE-370 76%-LOCM 1 ML ONE; +Iopamidol-370 76% 500 ML 1 ML ONE
[2021-06-14 11:54] LABS: Bilirubin Negative (Negative); Blood, Urine Negative (Negative); Clarity Clear (Clear); Glucose, Urine (Dipstick) >=1000 mg/dL (Negative); Ketone, Urine Trace mg/dL (Negative); Leukocyte Negative Leu/uL (Negative); Nitrite Negative (Negative); Protein, Urine (Dipstick) 20 mg/dL (Neg-Trace); Specific Gravity, Urine 1.024 (1.002-1.036); Urobilinogen Normal mg/dL (Less than 2); pH, Urine 6.5 (5.0-9.0)
[2021-06-14] MEDS ORDERED: Furosemide 40 MG/4 ML VIAL ONE (12:01)
[2021-06-14 12:40] LABS: #Lymphocytes 0.3 thou/uL (1.20-3.40); #Monocytes 0.2 thou/uL (0.11-0.59); #Neutrophils 1.9 thou/uL (1.40-6.50); %Eosinophils 0.4 % (0.0-10.0); %Lymphocytes 11.9 % (21.0-51.0); %Neutrophils 78.7 % (42.0-75.0); Hemoglobin 7.5 g/dL (14.0-18.0); Mean Corpuscular HGB CONC 28.5 g/dL (32.0-36.0); Mean Corpuscular Hemoglobin 17.6 pg (27.0-31.0); Mean Corpuscular Volume 61.6 fL (78.0-98.0); Mean Platelet Volume 8.2 fL (7.4-10.4); Platelet Count 47 thou/uL (130-400); RBC Distribution Width 17.2 % (11.5-14.5); Red Blood Cell (RBC) Count 4.27 mill/uL (4.70-6.10); White Blood Cell (WBC) Count 2.4 thou/uL (4.8-10.8)
[2021-06-14 12:49] LABS: INR-International Normal Ratio 1.3; Prothrombin Time 16.8 sec (12.0-14.7)
[2021-06-14 12:51] LABS: D-Dimer Test 0.65 *mcg/mL (0.27-0.43)
[2021-06-14 12:57] LABS: Anisocytosis SLIGHT = 6-15 cells (100X) (0-5/hpf); Burr Cells SLIGHT = 2-5 cells (100X) (0-1/hpf); Hypochromia SLIGHT = 6-15 cells (100X) (0-5/hpf); MDiff Complete? YES; Microcytosis SLIGHT = 6-15 cells (100X) (0-5/hpf); Ovalocytes SLIGHT = 2-5 cells (100X) (0-1/hpf); Platelet Morphology Comment Appears Decreased; Polychromasia SLIGHT = 2-3 cells (100X) (0-2/hpf); Reflex for Review?? NO
[2021-06-14 12:58] LABS: ALT (SGPT) 14 U/L (8-55); AST (SGOT) 21 U/L (5-34); Albumin 3.4 g/dL (3.4-4.8); Alkaline Phosphatase 84 U/L (40-110); Anion Gap 10 mmol/L (10-20); BUN (Urea Nitrogen) 12 mg/dL (8.4-25.7); Bilirubin, Total 0.9 mg/dL (0.2-1.2); Calc. Creatinine Clearance 0 mL/min (70-130); Calcium 8.4 mg/dL (7.8-10.44); Carbon Dioxide 28 mmol/L (23-31); Chloride 104 mmol/L (98-107); Globulin 2.3 g/dL (2.4-3.5); Glucose 213 mg/dL (83-110); Lipase 28 U/L (8-78); Potassium 3.2 mmol/L (3.5-5.1); Protein, Total 5.7 g/dL (5.8-8.1); Sodium 139 mmol/L (136-145)
[2021-06-14 13:17] LABS: PTT 34.9 sec (22.9-36.1)
[2021-06-14] MEDS ORDERED: methylPREDNISolone Sod Succ 40 MG VIAL ONE (13:57)
[2021-06-14] MEDS ORDERED: Potassium Chloride 20 MEQ TAB ONE (13:57)
[2021-06-14 16:21] VITALS: BMI 24.6
[2021-06-14] MEDS ORDERED: Ondansetron ODT 4 MG TAB PO PRN (17:20)
[2021-06-14 20:20] LABS: HBCM Index 0.08 S/CO (0-0.79); HBSAg Index 0.28 S/CO (0-0.99); Hep A IgM AB Non-Reactive (NonReactive); Hep A IgM S/CO 0.24 S/CO (0-0.79); Hep B Surf Ag Non-Reactive S/CO (NonReactive); Hep C IgG Ab Non-Reactive (NonReactive); Hep C Index 0.06 S/CO (0-0.79); Hepatitis B Core IgM Abs Non-Reactive (NonReactive)
[2021-06-14] MEDS ORDERED: Morphine 2 MG/ML VIAL SLOW IVP PRN (21:43)
[2021-06-14] MEDS: HYDROcodone/Acetaminophen 10/325 mg Tablet PO PRN (23:31)
[2021-06-14] MEDS ORDERED: Promethazine 25 MG TAB PO PRN (23:48)
[2021-06-15 05:30] LABS: ALT (SGPT) 11 U/L (8-55); AST (SGOT) 13 U/L (5-34); Albumin 3.1 g/dL (3.4-4.8); Alkaline Phosphatase 73 U/L (40-110); Anion Gap 12 mmol/L (10-20); BUN (Urea Nitrogen) 13 mg/dL (8.4-25.7); Bilirubin, Total 0.9 mg/dL (0.2-1.2); Calc. Creatinine Clearance 94 mL/min (70-130); Calcium 8.2 mg/dL (7.8-10.44); Carbon Dioxide 27 mmol/L (23-31); Chloride 100 mmol/L (98-107); Globulin 2.1 g/dL (2.4-3.5); Glucose 230 mg/dL (83-110); Magnesium 1.5 mg/dL (1.6-2.6); Potassium 3.1 mmol/L (3.5-5.1); Protein, Total 5.2 g/dL (5.8-8.1); Sodium 136 mmol/L (136-145)
[2021-06-15 05:52] LABS: #Lymphocytes 0.4 thou/uL (1.20-3.40); #Monocytes 0.4 thou/uL (0.11-0.59); %Eosinophils 0.4 % (0.0-10.0); %Lymphocytes 15.1 % (21.0-51.0); %Neutrophils 71.5 % (42.0-75.0); Hemoglobin 7.3 g/dL (14.0-18.0); Hypochromia SLIGHT = 6-15 cells (100X) (0-5/hpf); MDiff Complete? YES; Mean Corpuscular HGB CONC 29.3 g/dL (32.0-36.0); Mean Corpuscular Volume 61.3 fL (78.0-98.0); Mean Platelet Volume 6.7 fL (7.4-10.4); Microcytosis MODERATE=15-30 cells (100X) (0-5/hpf); Platelet Count 42 thou/uL (130-400); Platelet Morphology Comment Appears Decreased; Red Blood Cell (RBC) Count 4.07 mill/uL (4.70-6.10); Tear Drops SLIGHT = 2-5 cells (100X) (0-1/hpf); White Blood Cell (WBC) Count 2.8 thou/uL (4.8-10.8)
[2021-06-15] MEDS ORDERED: Magnesium Sulfate 4 GM in Sodium Chloride 0.9% 250 ML 250 ML IVPB SCH (07:45)
[2021-06-15] MEDS ORDERED: predniSONE 20 MG TAB PO SCH (08:00)
[2021-06-15] MEDS: Lisinopril 20 MG TAB PO SCH (08:18)
[2021-06-15] MEDS: Potassium Chloride 20 MEQ TAB PO SCH ×3 (08:18→16:34)
[2021-06-15] MEDS: Doxazosin 2 MG TAB PO SCH (08:18)
[2021-06-15] MEDS ORDERED: Sodium Bicarbonate 2.5 MEQ/5 ML VIAL ONE (08:32)
[2021-06-15] MEDS ORDERED: Morphine 4 MG/ML VIAL ONE (08:32)
[2021-06-15] MEDS ORDERED: Lidocaine 1% PF 5 ML VIAL ONE (08:32)
[2021-06-15] MEDS ORDERED: Furosemide 40 MG TAB PO SCH (09:00)
[2021-06-15 11:57] LABS: RBC Count-Automated (BF) 5475 /cu.mm; WBC/Nucleated-Auto (BF) 113 /cu.mm
[2021-06-15 12:00] LABS: BF Color Yellow; Body Fluid Source Ascites Body Fluid; Clarity Hazy (Clear); Tube # EDTA
[2021-06-15 12:19] LABS: SARS-CoV-2 PCR by NAA Not Detected (NotDetected)
[2021-06-15 12:23] LABS: BF Segmented Neutrophils 2 %; Cell Count Non Hematic 88 %; Lymphocytes 10 %
[2021-06-15] MEDS ORDERED: Insulin Regular 300 UNITS/3 ML VIAL SC PRN (15:11)
[2021-06-15] MEDS ORDERED: Dextrose 5% in Water 1,000 ML IV PRN (15:11)
[2021-06-15] MEDS ORDERED: Dextrose 50% Abboject 50 ML SYRINGE SLOW IVP PRN (15:11)
[2021-06-15] MEDS: HYDROcodone/Acetaminophen 10/325 mg Tablet PO PRN (21:46)
[2021-06-15] MEDS: Insulin Regular 300 UNITS/3 ML VIAL SC PRN (21:48)
[2021-06-16 04:59] LABS: Reticulocyte Count 1.6 % (0.5-1.5)
[2021-06-16 05:02] LABS: #Lymphocytes 0.4 thou/uL (1.20-3.40); #Monocytes 0.2 thou/uL (0.11-0.59); #Neutrophils 1.6 thou/uL (1.40-6.50); %Basophils 0.9 % (0.0-1.0); %Eosinophils 0.9 % (0.0-10.0); %Lymphocytes 18.8 % (21.0-51.0); %Monocytes 8.7 % (0.0-10.0); %Neutrophils 70.7 % (42.0-75.0); Hemoglobin 7.3 g/dL (14.0-18.0); Mean Corpuscular HGB CONC 28.5 g/dL (32.0-36.0); Mean Corpuscular Hemoglobin 17.7 pg (27.0-31.0); Mean Platelet Volume 6.3 fL (7.4-10.4); Platelet Count 43 thou/uL (130-400); RBC Distribution Width 17.3 % (11.5-14.5); Red Blood Cell (RBC) Count 4.12 mill/uL (4.70-6.10); White Blood Cell (WBC) Count 2.3 thou/uL (4.8-10.8)
[2021-06-16 05:21] LABS: ALT (SGPT) 11 U/L (8-55); AST (SGOT) 12 U/L (5-34); Albumin 3.3 g/dL (3.4-4.8); Alkaline Phosphatase 75 U/L (40-110); Anion Gap 12 mmol/L (10-20); BUN (Urea Nitrogen) 10 mg/dL (8.4-25.7); Bilirubin, Total 0.8 mg/dL (0.2-1.2); Calc. Creatinine Clearance 103 mL/min (70-130); Calcium 8.3 mg/dL (7.8-10.44); Carbon Dioxide 27 mmol/L (23-31); Chloride 101 mmol/L (98-107); Globulin 2.2 g/dL (2.4-3.5); Glucose 157 mg/dL (83-110); Iron 11 ug/dL (65-175); Iron Binding Capacity, Total 385 mcg/dL (261-462); Magnesium 1.9 mg/dL (1.6-2.6); Protein, Total 5.5 g/dL (5.8-8.1); Sodium 137 mmol/L (136-145)
[2021-06-16 05:39] LABS: Ferritin 3.48 ng/mL (22-322); Thyroid Stimulating Hormone 2.8499 uIU/mL (0.35-4.94)
[2021-06-16 05:40] LABS: HBSAB Concentration Less than 8.00 mIU/mL; Hep B Surf AB Non-Reactive (NonReactive)
[2021-06-16 05:45] LABS: Vitamin B12 282 pg/mL (211-911)
[2021-06-16] MEDS ORDERED: Electrolyte Replacement Protocol 1 EACH FS SCH (07:00)
[2021-06-16] MEDS ORDERED: Potassium Chloride 20 MEQ TAB PO SCH ×2 (07:30→14:45)
[2021-06-16] MEDS ORDERED: Magnesium 2 GM/50 ML(in water) 2 GM in Premix Bag 1 BAG IVPB SCH (07:30)
[2021-06-16 07:40] LABS: Troponin I Less than 0.010 ng/mL (< 0.028)
[2021-06-16] MEDS ORDERED: Cyanocobalamin 1000 MCG/ML VIAL IM SCH (08:15)
[2021-06-16] MEDS: Doxazosin 2 MG TAB PO SCH (09:55)
[2021-06-16] MEDS: Lisinopril 20 MG TAB PO SCH (09:56)
[2021-06-16] MEDS: Spironolactone 100 MG TAB PO SCH (09:56)
[2021-06-16] MEDS: Furosemide 20 MG TAB PO SCH (09:57)
[2021-06-16] MEDS: Insulin Regular 300 UNITS/3 ML VIAL SC PRN ×3 (12:08→21:38)
[2021-06-16 14:36] LABS: Potassium 3.3 mmol/L (3.5-5.1)
[2021-06-16] MEDS ORDERED: Carvedilol 6.25 MG TAB PO SCH (17:45)
[2021-06-16] MEDS: Cyanocobalamin (Vitamin B-12) 1,000 MCG TAB PO SCH (21:39)
[2021-06-16] MEDS: Morphine 2 MG/ML VIAL SLOW IVP PRN (21:41)
[2021-06-17] MEDS: Morphine 2 MG/ML VIAL SLOW IVP PRN (04:17)
[2021-06-17 05:16] LABS: #Lymphocytes 0.4 thou/uL (1.20-3.40); #Monocytes 0.2 thou/uL (0.11-0.59); #Neutrophils 1.5 thou/uL (1.40-6.50); %Basophils 0.2 % (0.0-1.0); %Eosinophils 0.9 % (0.0-10.0); %Lymphocytes 16.7 % (21.0-51.0); %Monocytes 10.7 % (0.0-10.0); %Neutrophils 71.5 % (42.0-75.0); Hemoglobin 7.5 g/dL (14.0-18.0); Mean Corpuscular HGB CONC 28.6 g/dL (32.0-36.0); Mean Corpuscular Volume 62.8 fL (78.0-98.0); Mean Platelet Volume 7.4 fL (7.4-10.4); Platelet Count 48 thou/uL (130-400); RBC Distribution Width 17.1 % (11.5-14.5); Red Blood Cell (RBC) Count 4.15 mill/uL (4.70-6.10); White Blood Cell (WBC) Count 2.1 thou/uL (4.8-10.8)
[2021-06-17 05:34] LABS: ALT (SGPT) 12 U/L (8-55); AST (SGOT) 13 U/L (5-34); Albumin 3.1 g/dL (3.4-4.8); Alkaline Phosphatase 68 U/L (40-110); Anion Gap 11 mmol/L (10-20); BUN (Urea Nitrogen) 12 mg/dL (8.4-25.7); Bilirubin, Total 0.7 mg/dL (0.2-1.2); Calc. Creatinine Clearance 96 mL/min (70-130); Calcium 8.1 mg/dL (7.8-10.44); Carbon Dioxide 27 mmol/L (23-31); Chloride 102 mmol/L (98-107); Globulin 2.1 g/dL (2.4-3.5); Glucose 158 mg/dL (83-110); Magnesium 1.9 mg/dL (1.6-2.6); Potassium 4.1 mmol/L (3.5-5.1); Protein, Total 5.2 g/dL (5.8-8.1); Sodium 136 mmol/L (136-145)
[2021-06-17] MEDS ORDERED: Magnesium 2 GM/50 ML(in water) 2 GM in Premix Bag 1 BAG IVPB SCH (06:15)
[2021-06-17] MEDS: Spironolactone 100 MG TAB PO SCH (07:25)
[2021-06-17] MEDS: Carvedilol 6.25 MG TAB PO SCH ×2 (07:25→16:13)
[2021-06-17] MEDS: Lisinopril 20 MG TAB PO SCH (07:26)
[2021-06-17] MEDS: Doxazosin 2 MG TAB PO SCH (07:26)
[2021-06-17] MEDS: Furosemide 20 MG TAB PO SCH (10:33)
[2021-06-17] MEDS: Iron, Sodium Ferric Gluconate 250 MG in Sodium Chloride 0.9% 250 ML 250 ML IVPB SCH (10:34)
[2021-06-17] MEDS ORDERED: GoLYTELY 4,000 ml Bottle PO SCH (16:00)
[2021-06-17] MEDS: HYDROcodone/Acetaminophen 10/325 mg Tablet PO PRN ×2 (16:13→20:48)
[2021-06-17 19:22] LABS: EliA Vaculitis New Method **** NEW METHOD ****; Mitochondrial Ab 2.7 U/mL (<4 Negative)
[2021-06-17] MEDS: Cyanocobalamin (Vitamin B-12) 1,000 MCG TAB PO SCH (20:46)
[2021-06-18] MEDS: Lisinopril 20 MG TAB PO SCH (07:52)
[2021-06-18] MEDS: Carvedilol 6.25 MG TAB PO SCH ×2 (07:52→17:02)
[2021-06-18] MEDS: Doxazosin 2 MG TAB PO SCH (07:53)
[2021-06-18] MEDS ORDERED: Amlodipine 5 MG TAB PO SCH (09:00)
[2021-06-18] MEDS ORDERED: Lidocaine 1% PF 5 ML VIAL ONE (09:16)
[2021-06-18] MEDS ORDERED: PROPOFOL 200 MG/20 ML VIAL ONE (09:16)
[2021-06-18] MEDS: Furosemide 20 MG TAB PO SCH (12:50)
[2021-06-18] MEDS: Spironolactone 100 MG TAB PO SCH (12:51)
[2021-06-18] MEDS: Iron, Sodium Ferric Gluconate 250 MG in Sodium Chloride 0.9% 250 ML 250 ML IVPB SCH (13:34)
[2021-06-18] MEDS: HYDROcodone/Acetaminophen 10/325 mg Tablet PO PRN (13:41)
[2021-06-18 15:33] VITALS: BP 162/74; TEMP 97.9
[2021-06-18 18:37] LABS: Smooth Muscle Total ABS 2 Units (0-19)
== END 2021-06-18 17:18 | disposition home or self-care (01) | DRG 433 ==
LOC: ERS 10:53 → 2SW 14:46 → OBSVTOIN 06-15 16:39
PROVIDERS: ADMIT Internal Medicine; ATTEND Internal Medicine
PROC: 0W9G3ZZ Drainage of Peritoneal Cavity, Percutaneous Approach (ICD-10-PCS; 2021-06-15)
PROC: 0W9G3ZX Drainage of Peritoneal Cavity, Percutaneous Approach, Diagnostic (ICD-10-PCS; 2021-06-15)
PROC: 06L38CZ Occlusion of Esophageal Vein with Extraluminal Device, Via Natural or Artificial Opening Endoscopic (ICD-10-PCS; principal; 2021-06-18)
PROC: 0DB98ZX Excision of Duodenum, Via Natural or Artificial Opening Endoscopic, Diagnostic (ICD-10-PCS; 2021-06-18)
PROC: 0DBN8ZZ Excision of Sigmoid Colon, Via Natural or Artificial Opening Endoscopic (ICD-10-PCS; 2021-06-18)
DX: K74.60 Unspecified cirrhosis of liver (principal); R18.8 Other ascites; K50.90 Crohn's disease, unspecified, without complications; D61.818 Other pancytopenia; I47.1 Supraventricular tachycardia; K76.6 Portal hypertension; I50.30 Unspecified diastolic (congestive) heart failure; Z20.822 Contact with and (suspected) exposure to COVID-19; K64.8 Other hemorrhoids; E11.65 Type 2 diabetes mellitus with hyperglycemia; I45.10 Unspecified right bundle-branch block; E83.42 Hypomagnesemia; D50.9 Iron deficiency anemia, unspecified; T38.0X5A Adverse effect of glucocorticoids and synthetic analogues, initial encounter; E87.6 Hypokalemia; Z79.899 Other long term (current) drug therapy; Z90.49 Acquired absence of other specified parts of digestive tract; Z87.891 Personal history of nicotine dependence
CPT/HCPCS: 36415; 36416; 49083; 70450; 71045; 74177; 74183; 80053; 80074; 81003; 82042; 82103; 82104; 82105; 82607; 82728; 82746; 83516; 83540; 83550; 83605; 83690; 83735; 83880; 84157; 84443; 84484; 85025; 85046; 85060; 85379; 85610; 85652; 85730; 86015; 86140; 86706; 86708; 86850; 86900; 86901; 87070; 87205; 88305; 89051; 93005; 93010; 93306; 93970; 94760; 96374; 96375; G0378; J1815; J1940; J2270; J2704; J2916; J2920; J3420; J3475; J7050; J7512; Q9967; U0003; U0005

== ENCOUNTER 2022-01-17 12:06 | Inpatient (IN) | payer MEDICARE ==
[2022-01-17 12:45] LABS: Bilirubin Negative (Negative); Blood, Urine Negative (Negative); Clarity Clear (Clear); Glucose, Urine (Dipstick) Normal (Negative); Ketone, Urine Negative (Negative); Leukocyte Negative Leu/uL (Negative); Nitrite Negative (Negative); Protein, Urine (Dipstick) Negative (Neg-Trace); Specific Gravity, Urine 1.015 (1.002-1.036); Urobilinogen Normal mg/dL (Less than 2); pH, Urine 5.5 (5.0-9.0)
[2022-01-17 12:48] LABS: #Lymphocytes 0.7 thou/uL (1.20-3.40); #Monocytes 0.4 thou/uL (0.11-0.59); #Neutrophils 3.7 thou/uL (1.40-6.50); %Eosinophils 0.3 % (0.0-10.0); %Lymphocytes 13.9 % (21.0-51.0); %Monocytes 7.5 % (0.0-10.0); %Neutrophils 78.4 % (42.0-75.0); Hemoglobin 14.7 g/dL (14.0-18.0); Mean Corpuscular HGB CONC 33.2 g/dL (32.0-36.0); Mean Corpuscular Hemoglobin 26.7 pg (27.0-31.0); Mean Corpuscular Volume 80.5 fl (78.0-98.0); Mean Platelet Volume 8.4 fL (7.4-10.4); Platelet Count 74 10x3/uL (130-400); RBC Distribution Width 15.7 % (11.5-14.5); Red Blood Cell (RBC) Count 5.51 mill/uL (4.70-6.10); White Blood Cell (WBC) Count 4.7 10x3/uL (4.8-10.8)
[2022-01-17] MEDS ORDERED: Ondansetron PF 4 MG/2 ML Vial ONE (12:54)
[2022-01-17 13:06] LABS: ALT (SGPT) 33 U/L (8-55); AST (SGOT) 23 U/L (5-34); Albumin 4.4 g/dL (3.4-4.8); Alkaline Phosphatase 145 U/L (40-110); Anion Gap 15 mmol/L (10-20); BUN (Urea Nitrogen) 42 mg/dL (8.4-25.7); Bilirubin, Total 0.8 mg/dL (0.2-1.2); Calc. Creatinine Clearance 0 mL/min (70-130); Calcium 9.6 mg/dL (7.8-10.44); Carbon Dioxide 25 mmol/L (23-31); Chloride 101 mmol/L (98-107); Estimated GFR 48; Globulin 3.2 g/dL (2.4-3.5); Glucose 175 mg/dL (83-110); Potassium 4.7 mmol/L (3.5-5.1); Protein, Total 7.6 g/dL (5.8-8.1); Sodium 136 mmol/L (136-145)
[2022-01-17] MEDS ORDERED: Morphine 4 MG/ML VIAL ONE (14:27)
[2022-01-17] MEDS ORDERED: Aspirin Chewable 81 MG TAB ONE (15:14)
[2022-01-17] MEDS ORDERED: Ondansetron PF 4 MG/2 ML Vial IVP PRN (18:34)
[2022-01-17] MEDS ORDERED: Ondansetron ODT 4 MG TAB PO PRN (18:34)
[2022-01-17] MEDS ORDERED: hydrALAZINE 20 MG/ML VIAL SLOW IVP PRN (18:35)
[2022-01-17] MEDS ORDERED: Dextrose 5% in Water 1,000 ML IV PRN (18:39)
[2022-01-17] MEDS ORDERED: Dextrose 50% Abboject 50 ML SYRINGE SLOW IVP PRN (18:39)
[2022-01-17] MEDS ORDERED: HumaLOG 300 UNITS/3 ML VIAL SC PRN ×2 (18:39)
[2022-01-17] MEDS ORDERED: Sodium Chloride 0.9% 1,000 ML IV SCH (18:45)
[2022-01-17 20:42] VITALS: BMI 19.3
[2022-01-17 20:50] LABS: INR-International Normal Ratio 1.1; Prothrombin Time 14.6 sec (12.0-14.7)
[2022-01-17] MEDS ORDERED: Atorvastatin Calcium 40 MG TAB PO SCH (21:00)
[2022-01-18 05:11] LABS: Hemoglobin A1c 7.3 % (4.0-6.0)
[2022-01-18 05:24] LABS: Anion Gap 10 mmol/L (10-20); BUN (Urea Nitrogen) 29 mg/dL (8.4-25.7); Calc. Creatinine Clearance 55 mL/min (70-130); Calcium 8.8 mg/dL (7.8-10.44); Carbon Dioxide 26 mmol/L (23-31); Cardiac Risk 3.2 (Less than 4.5); Chloride 105 mmol/L (98-107); Cholesterol 115 mg/dl (< 200 Desired); Estimated GFR 77; Glucose 134 mg/dL (83-110); HDL Cholesterol 36 mg/dL (>60 Neg Risk); LDL Cholesterol, Calculated 56 mg/dL; Potassium 4.6 mmol/L (3.5-5.1); Sodium 136 mmol/L (136-145); Triglycerides 116 mg/dL (Less than 150)
[2022-01-18 05:26] LABS: #Lymphocytes 0.4 thou/uL (1.20-3.40); #Monocytes 0.3 thou/uL (0.11-0.59); %Basophils 1.5 % (0.0-1.0); %Eosinophils 0.7 % (0.0-10.0); %Lymphocytes 14.3 % (21.0-51.0); %Monocytes 11.1 % (0.0-10.0); %Neutrophils 72.4 % (42.0-75.0); Mean Corpuscular HGB CONC 34.3 g/dL (32.0-36.0); Mean Corpuscular Hemoglobin 27.9 pg (27.0-31.0); Mean Corpuscular Volume 81.3 fl (78.0-98.0); Mean Platelet Volume 11.8 fL (7.4-10.4); Platelet Count 49 10x3/uL (130-400); RBC Distribution Width 15.5 % (11.5-14.5); Red Blood Cell (RBC) Count 4.31 mill/uL (4.70-6.10); White Blood Cell (WBC) Count 2.8 10x3/uL (4.8-10.8)
[2022-01-18] MEDS ORDERED: Aspirin 81 mg Enteric Coated Tablet PO SCH (09:00)
[2022-01-18] MEDS ORDERED: FLU VACC QS2022-23(65YR UP)/PF 240 MCG/0.7 ML SYRINGE IM ONE (09:00)
[2022-01-18] MEDS ORDERED: oxyCODONE 5 MG TAB PO PRN (17:47)
[2022-01-19 05:33] LABS: #Lymphocytes 0.5 thou/uL (1.20-3.40); #Monocytes 0.3 thou/uL (0.11-0.59); #Neutrophils 1.6 thou/uL (1.40-6.50); %Eosinophils 0.9 % (0.0-10.0); %Lymphocytes 20.6 % (21.0-51.0); %Monocytes 10.6 % (0.0-10.0); Mean Corpuscular HGB CONC 33.8 g/dL (32.0-36.0); Mean Corpuscular Hemoglobin 27.3 pg (27.0-31.0); Mean Corpuscular Volume 80.7 fl (78.0-98.0); Platelet Count 44 10x3/uL (130-400); RBC Distribution Width 15.4 % (11.5-14.5); White Blood Cell (WBC) Count 2.4 10x3/uL (4.8-10.8)
[2022-01-19 05:57] LABS: Anion Gap 9 mmol/L (10-20); BUN (Urea Nitrogen) 21 mg/dL (8.4-25.7); Calc. Creatinine Clearance 68 mL/min (70-130); Calcium 8.7 mg/dL (7.8-10.44); Carbon Dioxide 24 mmol/L (23-31); Chloride 104 mmol/L (98-107); Estimated GFR 93; Glucose 148 mg/dL (83-110); Potassium 4.5 mmol/L (3.5-5.1); Sodium 132 mmol/L (136-145)
[2022-01-19 12:11] VITALS: TEMP 98.2
[2022-01-19 17:02] VITALS: BP 153/84
== END 2022-01-19 18:05 | disposition home or self-care (01) | DRG 683 ==
LOC: ERS 12:06 → NEURO 18:25 → OBSVTOIN 01-18 15:58
PROVIDERS: ADMIT Internal Medicine; ATTEND Internal Medicine
DX: N17.9 Acute kidney failure, unspecified (principal); D61.818 Other pancytopenia; I47.1 Supraventricular tachycardia; K50.90 Crohn's disease, unspecified, without complications; K76.6 Portal hypertension; Z20.822 Contact with and (suspected) exposure to COVID-19; D46.9 Myelodysplastic syndrome, unspecified; K74.69 Other cirrhosis of liver; F41.9 Anxiety disorder, unspecified; N40.0 Benign prostatic hyperplasia without lower urinary tract symptoms; N18.2 Chronic kidney disease, stage 2 (mild); I12.9 Hypertensive chronic kidney disease with stage 1 through stage 4 chronic kidney disease, or unspecified chronic kidney disease; G89.4 Chronic pain syndrome; E86.0 Dehydration; D63.1 Anemia in chronic kidney disease; E11.22 Type 2 diabetes mellitus with diabetic chronic kidney disease; I95.1 Orthostatic hypotension; Z79.899 Other long term (current) drug therapy; Z90.49 Acquired absence of other specified parts of digestive tract; Z87.891 Personal history of nicotine dependence; Z79.84 Long term (current) use of oral hypoglycemic drugs
CPT/HCPCS: 36415; 36416; 70450; 70551; 71045; 80048; 80053; 80061; 81003; 83036; 84443; 84484; 85025; 85610; 93005; 93306; 96361; 96374; 96375; G0378; J2270; J2405; J7050; U0003; U0005

== ENCOUNTER 2022-01-20 16:31 | Emergency (ER) | payer MEDICARE ==
[2022-01-20 16:55] LABS: #Basophils 0.2 thou/uL (0.0-0.2); #Lymphocytes 0.6 thou/uL (1.20-3.40); #Monocytes 0.7 thou/uL (0.11-0.59); #Neutrophils 6.5 thou/uL (1.40-6.50); %Basophils 1.9 % (0.0-1.0); %Eosinophils 0.2 % (0.0-10.0); %Lymphocytes 7.8 % (21.0-51.0); %Monocytes 8.5 % (0.0-10.0); %Neutrophils 81.6 % (42.0-75.0); Hemoglobin 14.5 g/dL (14.0-18.0); Mean Corpuscular HGB CONC 33.8 g/dL (32.0-36.0); Mean Corpuscular Volume 80.1 fl (78.0-98.0); Mean Platelet Volume 11.8 fL (7.4-10.4); Platelet Count 103 10x3/uL (130-400); Red Blood Cell (RBC) Count 5.37 mill/uL (4.70-6.10); White Blood Cell (WBC) Count 7.9 10x3/uL (4.8-10.8)
[2022-01-20 16:59] LABS: Bilirubin Negative (Negative); Blood, Urine Negative (Negative); Clarity Clear (Clear); Glucose, Urine (Dipstick) 70 mg/dL (Negative); Ketone, Urine 10 mg/dL (Negative); Leukocyte Negative Leu/uL (Negative); Nitrite Negative (Negative); Protein, Urine (Dipstick) 10 mg/dL (Neg-Trace); Specific Gravity, Urine 1.024 (1.002-1.036); Urobilinogen Normal mg/dL (Less than 2)
[2022-01-20 17:16] LABS: ALT (SGPT) 29 U/L (8-55); AST (SGOT) 25 U/L (5-34); Albumin 4.2 g/dL (3.4-4.8); Alkaline Phosphatase 128 U/L (40-110); Anion Gap 15 mmol/L (10-20); BUN (Urea Nitrogen) 29 mg/dL (8.4-25.7); Bilirubin, Total 0.9 mg/dL (0.2-1.2); Calc. Creatinine Clearance 0 mL/min (70-130); Calcium 9.6 mg/dL (7.8-10.44); Carbon Dioxide 24 mmol/L (23-31); Chloride 99 mmol/L (98-107); Estimated GFR 62; Globulin 2.8 g/dL (2.4-3.5); Glucose 196 mg/dL (83-110); Potassium 4.7 mmol/L (3.5-5.1); Sodium 133 mmol/L (136-145)
[2022-01-20] MEDS ORDERED: Ondansetron PF 4 MG/2 ML Vial ONE (17:26)
[2022-01-20] MEDS ORDERED: Ketorolac Tromethamine 30 MG/ML VIAL ONE (18:42)
[2022-01-20] MEDS ORDERED: methylPREDNISolone Sod Succ/PF 125 MG/2 ML VIAL ONE (18:42)
[2022-01-20] MEDS ORDERED: Ampicillin 2 GM VIAL ONE (19:12)
[2022-01-20] MEDS ORDERED: Ampicillin/Sulbactam 3 GM in Sodium Chloride 0.9% 100 ML IVPB SCH (19:15)
[2022-01-20] MEDS ORDERED: Morphine 4 MG/ML VIAL ONE (20:11)
== END 2022-01-20 22:48 | disposition home or self-care (01) ==
LOC: ERS 16:31
DX: K52.9 Noninfective gastroenteritis and colitis, unspecified (principal); K50.00 Crohn's disease of small intestine without complications; I10 Essential (primary) hypertension; E11.9 Type 2 diabetes mellitus without complications
CPT/HCPCS: 36415; 74177; 80053; 81003; 83690; 84484; 85025; 96365; 96375; J0290; J0295; J1885; J2270; J2405; J2930; J3490; Q9967

== ENCOUNTER 2022-06-08 16:28 | Emergency (ER) | payer MEDICARE ==
[2022-06-08] MEDS ORDERED: Morphine 4 MG/ML VIAL ONE ×2 (17:23→19:40)
[2022-06-08] MEDS ORDERED: Ondansetron ODT 4 MG TAB ONE (17:26)
[2022-06-08 18:11] LABS: Hemoglobin 8.1 g/dL (14.0-18.0); Mean Corpuscular HGB CONC 32.8 g/dL (32.0-36.0); Mean Corpuscular Volume 70.2 fl (78.0-98.0); Platelet Count 53 10x3/uL (130-400); RBC Distribution Width 15.4 % (11.5-14.5); Red Blood Cell (RBC) Count 3.51 mill/uL (4.70-6.10); White Blood Cell (WBC) Count 3.2 10x3/uL (4.8-10.8)
[2022-06-08 18:17] LABS: CRP (Inflammatory) Less than 0.50 mg/dL (= or < 0.5); Lipase 36 U/L (8-78)
[2022-06-08 18:18] LABS: ALT (SGPT) 15 U/L (8-55); AST (SGOT) 12 U/L (5-34); Albumin 3.5 g/dL (3.4-4.8); Alkaline Phosphatase 113 U/L (40-110); Anion Gap 12 mmol/L (10-20); BUN (Urea Nitrogen) 18 mg/dL (8.4-25.7); Bilirubin, Total 0.3 mg/dL (0.2-1.2); Calc. Creatinine Clearance 0 mL/min (70-130); Calcium 8.7 mg/dL (7.8-10.44); Carbon Dioxide 22 mmol/L (23-31); Chloride 104 mmol/L (98-107); Estimated GFR 61; Globulin 1.9 g/dL (2.4-3.5); Glucose 242 mg/dL (83-110); Potassium 4.4 mmol/L (3.5-5.1); Protein, Total 5.4 g/dL (5.8-8.1); Sodium 134 mmol/L (136-145)
[2022-06-08 18:31] LABS: #Lymphocytes 0.3 thou/uL (1.20-3.40); #Monocytes 0.3 thou/uL (0.11-0.59); #Neutrophils 2.5 thou/uL (1.40-6.50); %Basophils 0.8 % (0.0-1.0); %Eosinophils 0.7 % (0.0-10.0); %Lymphocytes 9.8 % (21.0-51.0); %Monocytes 10.3 % (0.0-10.0); %Neutrophils 78.5 % (42.0-75.0); Hypochromia SLIGHT = 6-15 cells (100X) (0-5/hpf); MDiff Complete? YES; Microcytosis SLIGHT = 6-15 cells (100X) (0-5/hpf); Ovalocytes SLIGHT = 2-5 cells (100X) (0-1/hpf); Platelet Morphology Comment Appears Decreased; Polychromasia SLIGHT = 2-3 cells (100X) (0-2/hpf); Target Cells SLIGHT = 2-5 cells (100X) (0-1/hpf)
[2022-06-08] MEDS ORDERED: Ondansetron PF 4 MG/2 ML Vial ONE (19:40)
== END 2022-06-08 21:14 | disposition home or self-care (01) ==
LOC: ERS 16:28
DX: K50.90 Crohn's disease, unspecified, without complications (principal); I10 Essential (primary) hypertension; E11.9 Type 2 diabetes mellitus without complications
CPT/HCPCS: 36415; 80053; 82140; 83605; 83690; 85025; 86140; 96361; 96374; 96375; 96376; J2270; J2405; Q0162

== ENCOUNTER 2022-06-08 22:47 | Observation (INO) | payer MEDICARE ==
[~2022-06-08 22:47] MED LIST changes: -Iopamidol-370 76% 500 ML 1 ML ONE; +Iopamidol-370 76% 500 ML MDV (1 ML CHARGE) ONE
[2022-06-08] MEDS ORDERED: Morphine 4 MG/ML VIAL ONE (23:41)
[2022-06-08] MEDS ORDERED: Ondansetron PF 4 MG/2 ML Vial ONE (23:41)
[2022-06-09] MEDS ORDERED: Morphine 4 MG/ML VIAL ONE (00:20)
[2022-06-09] MEDS ORDERED: Dicyclomine 20 MG/2 ML VIAL ONE (00:20)
[2022-06-09] MEDS ORDERED: methylPREDNISolone Sod Succ/PF 125 MG/2 ML VIAL IVP ONE (00:35)
[2022-06-09] MEDS ORDERED: Acetaminophen 325 MG TAB PO PRN (00:36)
[2022-06-09] MEDS ORDERED: Morphine 2 MG/ML VIAL SLOW IVP PRN (01:09)
[2022-06-09] MEDS ORDERED: Dextrose 50% Abboject 50 ML SYRINGE SLOW IVP PRN (01:10)
[2022-06-09] MEDS ORDERED: Dextrose 5% in Water 1,000 ML IV PRN (01:10)
[2022-06-09 01:42] LABS: #Lymphocytes 0.4 thou/uL (1.20-3.40); #Monocytes 0.3 thou/uL (0.11-0.59); #Neutrophils 3.6 thou/uL (1.40-6.50); %Basophils 0.2 % (0.0-1.0); %Eosinophils 0.3 % (0.0-10.0); %Lymphocytes 8.2 % (21.0-51.0); %Monocytes 6.9 % (0.0-10.0); %Neutrophils 84.3 % (42.0-75.0); Hemoglobin 9.3 g/dL (14.0-18.0); Mean Corpuscular HGB CONC 33.4 g/dL (32.0-36.0); Mean Corpuscular Hemoglobin 23.7 pg (27.0-31.0); Mean Platelet Volume 6.6 fL (7.4-10.4); Platelet Count 50 10x3/uL (130-400); RBC Distribution Width 15.6 % (11.5-14.5); White Blood Cell (WBC) Count 4.2 10x3/uL (4.8-10.8)
[2022-06-09 02:00] LABS: ALT (SGPT) 16 U/L (8-55); AST (SGOT) 15 U/L (5-34); Albumin 3.6 g/dL (3.4-4.8); Alkaline Phosphatase 114 U/L (40-110); Anion Gap 10 mmol/L (10-20); BUN (Urea Nitrogen) 17 mg/dL (8.4-25.7); Bilirubin, Total 0.4 mg/dL (0.2-1.2); Calc. Creatinine Clearance 0 mL/min (70-130); Calcium 8.5 mg/dL (7.8-10.44); Carbon Dioxide 20 mmol/L (23-31); Chloride 106 mmol/L (98-107); Estimated GFR 80; Globulin 2.2 g/dL (2.4-3.5); Glucose 228 mg/dL (83-110); Potassium 4.2 mmol/L (3.5-5.1); Protein, Total 5.8 g/dL (5.8-8.1); Sodium 132 mmol/L (136-145)
[2022-06-09] MEDS ORDERED: Dextrose 5%-Lactated Ringers 1,000 ML IV SCH (02:00)
[2022-06-09 05:45] VITALS: BMI 20.3
[2022-06-09] MEDS: Famotidine 20 MG TAB PO SCH ×2 (09:48→19:57)
[2022-06-09] MEDS: azaTHIOprine 50 MG TAB PO SCH (09:48)
[2022-06-09] MEDS: Valsartan 80 MG TAB PO SCH (09:48)
[2022-06-09] MEDS: metFORMIN 500 MG TAB PO SCH ×2 (09:48→16:28)
[2022-06-09] MEDS: Spironolactone 25 MG TAB PO SCH (09:48)
[2022-06-09] MEDS: Furosemide 40 MG TAB PO SCH (09:48)
[2022-06-09] MEDS: Iron, Sodium Ferric Gluconate 250 MG in Sodium Chloride 0.9% 250 ML 250 ML IVPB SCH (15:31)
[2022-06-09] MEDS: HumaLOG 300 UNITS/3 ML VIAL SC PRN ×2 (16:28→19:56)
[2022-06-09] MEDS: Amitriptyline HCl 25 MG TAB PO SCH (19:57)
[2022-06-09] MEDS: methylPREDNISolone Sod Succ 40 MG VIAL IVP SCH (21:41)
[2022-06-10] MEDS: methylPREDNISolone Sod Succ 40 MG VIAL IVP SCH ×3 (05:22→20:38)
[2022-06-10] MEDS: HumaLOG 300 UNITS/3 ML VIAL SC PRN ×4 (05:25→20:39)
[2022-06-10 08:10] LABS: #Lymphocytes 0.3 thou/uL (1.20-3.40); #Monocytes 0.1 thou/uL (0.11-0.59); %Basophils 0.7 % (0.0-1.0); %Eosinophils 0.1 % (0.0-10.0); %Lymphocytes 5.4 % (21.0-51.0); %Monocytes 2.4 % (0.0-10.0); %Neutrophils 91.4 % (42.0-75.0); Hemoglobin 9.1 g/dL (14.0-18.0); Mean Corpuscular HGB CONC 31.8 g/dL (32.0-36.0); Mean Corpuscular Hemoglobin 22.3 pg (27.0-31.0); Mean Corpuscular Volume 70.3 fl (78.0-98.0); Mean Platelet Volume 6.8 fL (7.4-10.4); Platelet Count 64 10x3/uL (130-400); RBC Distribution Width 15.8 % (11.5-14.5); Red Blood Cell (RBC) Count 4.06 mill/uL (4.70-6.10); White Blood Cell (WBC) Count 5.5 10x3/uL (4.8-10.8)
[2022-06-10 08:23] LABS: Anion Gap 11 mmol/L (10-20); BUN (Urea Nitrogen) 16 mg/dL (8.4-25.7); Calc. Creatinine Clearance 58 mL/min (70-130); Calcium 9.1 mg/dL (7.8-10.44); Carbon Dioxide 22 mmol/L (23-31); Chloride 104 mmol/L (98-107); Estimated GFR 79; Glucose 255 mg/dL (83-110); Potassium 4.3 mmol/L (3.5-5.1); Sodium 133 mmol/L (136-145)
[2022-06-10] MEDS: Famotidine 20 MG TAB PO SCH ×2 (09:24→20:33)
[2022-06-10] MEDS: Furosemide 40 MG TAB PO SCH (09:24)
[2022-06-10] MEDS: Spironolactone 25 MG TAB PO SCH (09:24)
[2022-06-10] MEDS: metFORMIN 500 MG TAB PO SCH ×2 (09:25→16:45)
[2022-06-10] MEDS: Valsartan 80 MG TAB PO SCH (09:25)
[2022-06-10] MEDS: azaTHIOprine 50 MG TAB PO SCH (09:25)
[2022-06-10] MEDS: Iron, Sodium Ferric Gluconate 250 MG in Sodium Chloride 0.9% 250 ML 250 ML IVPB SCH (16:46)
[2022-06-10] MEDS: Amitriptyline HCl 25 MG TAB PO SCH (20:33)
[2022-06-11] MEDS: methylPREDNISolone Sod Succ 40 MG VIAL IVP SCH ×2 (04:51→13:47)
[2022-06-11] MEDS: HumaLOG 300 UNITS/3 ML VIAL SC PRN ×2 (04:52→11:38)
[2022-06-11 07:26] LABS: #Lymphocytes 0.3 thou/uL (1.20-3.40); #Monocytes 0.3 thou/uL (0.11-0.59); #Neutrophils 3.8 thou/uL (1.40-6.50); %Basophils 0.3 % (0.0-1.0); %Eosinophils 0.2 % (0.0-10.0); %Lymphocytes 7.7 % (21.0-51.0); %Monocytes 5.8 % (0.0-10.0); Mean Corpuscular HGB CONC 31.9 g/dL (32.0-36.0); Mean Corpuscular Hemoglobin 22.1 pg (27.0-31.0); Mean Corpuscular Volume 69.2 fl (78.0-98.0); Mean Platelet Volume 8.5 fL (7.4-10.4); Platelet Count 45 10x3/uL (130-400); RBC Distribution Width 15.7 % (11.5-14.5); Red Blood Cell (RBC) Count 3.64 mill/uL (4.70-6.10); White Blood Cell (WBC) Count 4.4 10x3/uL (4.8-10.8)
[2022-06-11 07:50] LABS: Anion Gap 11 mmol/L (10-20); BUN (Urea Nitrogen) 17 mg/dL (8.4-25.7); Calc. Creatinine Clearance 57 mL/min (70-130); Calcium 9.6 mg/dL (7.8-10.44); Carbon Dioxide 26 mmol/L (23-31); Chloride 102 mmol/L (98-107); Estimated GFR 78; Glucose 228 mg/dL (83-110); Potassium 3.9 mmol/L (3.5-5.1); Sodium 135 mmol/L (136-145)
[2022-06-11] MEDS: metFORMIN 500 MG TAB PO SCH (08:24)
[2022-06-11] MEDS: Spironolactone 25 MG TAB PO SCH (08:24)
[2022-06-11] MEDS: Furosemide 40 MG TAB PO SCH (08:25)
[2022-06-11] MEDS: Famotidine 20 MG TAB PO SCH (08:25)
[2022-06-11] MEDS: azaTHIOprine 50 MG TAB PO SCH (08:25)
[2022-06-11] MEDS: Valsartan 80 MG TAB PO SCH (11:38)
[2022-06-11 12:14] VITALS: TEMP 97.5
[2022-06-11 16:12] VITALS: BP 146/81
== END 2022-06-11 16:12 | disposition home or self-care (01) ==
LOC: ERS 22:47 → T4-A 06-09 00:40
PROVIDERS: ADMIT Internal Medicine; ATTEND Internal Medicine
DX: K50.10 Crohn's disease of large intestine without complications (principal); K56.600 Partial intestinal obstruction, unspecified as to cause; K74.60 Unspecified cirrhosis of liver; D69.6 Thrombocytopenia, unspecified; D50.9 Iron deficiency anemia, unspecified; E11.65 Type 2 diabetes mellitus with hyperglycemia; I11.0 Hypertensive heart disease with heart failure; I50.30 Unspecified diastolic (congestive) heart failure; G14 Postpolio syndrome; G89.4 Chronic pain syndrome; I85.10 Secondary esophageal varices without bleeding; R16.1 Splenomegaly, not elsewhere classified; Z87.891 Personal history of nicotine dependence; Z79.84 Long term (current) use of oral hypoglycemic drugs; Z79.899 Other long term (current) drug therapy
CPT/HCPCS: 74177; 80048 ×2; 80053; 82962 ×3; 85025 ×3; 87324; 87449; 96372; 96374; 96375 ×2; 96376 ×4; 99285; G0378 ×4; 36415; 36416; J1815; J2270; J2405; J2916; J2920; J2930; J7050; J7500; Q9967

== ENCOUNTER 2023-02-08 15:19 | Emergency (ER) | payer OTHER, MEDICARE | END 2023-02-08 17:18 | disposition home or self-care (01) | LOC: ERS 15:19 | DX: S16.1XXA Strain of muscle, fascia and tendon at neck level, initial encounter (principal); S30.0XXA Contusion of lower back and pelvis, initial encounter; R51.9 Headache, unspecified; I10 Essential (primary) hypertension; E11.9 Type 2 diabetes mellitus without complications; Z79.84 Long term (current) use of oral hypoglycemic drugs; W01.10XA Fall on same level from slipping, tripping and stumbling with subsequent striking against unspecified object, initial encounter | CPT/HCPCS: 70450; 72125; 72131 ==